=== PATIENT | male | born 1935 | race Caucasian/White ===

== ENCOUNTER 2020-05-29 10:44 | Day surgery (SDC) | payer OTHER ==
[2020-05-29] MEDS ORDERED: Phenylephrine HCl 10 MG/ML 1 ML VIAL ONE (10:58)
[2020-05-29] MEDS ORDERED: Ringers Lactate 1,000 ML IV ONE (10:58)
[2020-05-29] MEDS ORDERED: GLYCOPYRROLATE 0.2 MG/ML SYR ONE ×2 (11:08→12:31)
[2020-05-29] MEDS ORDERED: LIDOCAINE VISCOUS 2% SOLN 15 ML UDC ONE (12:28)
[2020-05-29] MEDS ORDERED: LIDOCAINE 1% MPF 30 ML VIAL ONE (12:28)
[2020-05-29] MEDS ORDERED: propofoL 200 MG/20 ML VIAL IV ONE ×2 (12:31→13:21)
[2020-05-29] MEDS ORDERED: LIDOCAINE 2% MPF 5 ML VIAL ONE (12:31)
--- NOTE | 2020-05-29 13:27 | RAD REPORT ---
EXAM DESCRIPTION: RAD - FLUORO-GUIDE FOR BRONCH UPT1HR - 05/29/2020 1:20 pm CLINICAL HISTORY: BRONCHOSCOPY COMPARISON: No comparisons FINDINGS: Fluoroscopy time 1.5 minutes.
--- OUTSIDE RECORDS SUMMARY | 2020-05-29 13:27 | XMS REPORT | Clinical Summary ---
:1935 Author Organization [facility] Address [address] [place] [address] Care Team Providers Name Role Phone Cali Barriga MD Primary Care Provider Allergies No Known Allergies Medications Medication Sig Dispensed Refills Start Date End Date Status fenofibrate (LOFIBRA) Take 134 mg by 0 Active 160 MG tablet mouth daily. lisinopril Take 10 mg by 0 Activ e (PRINIVIL,ZESTRIL) 10 mouth daily. mg tablet rosuvastatin (CRESTOR) Take 20 mg by 0 Active 20 MG tablet mouth daily. tamsulosin (FLOMAX) 0.4 Take 0.4 mg by 0 Active mg capsule mouth daily. metoprolol tartrate Take 25 mg by 0 Active (LOPRESSOR) 25 mg mouth 2 (two) tablet times a day. finasteride (PROSCAR) 5 Take 5 mg by 0 Active mg tablet mouth daily. aspirin (ECOTRIN) 81 MG Take 81 mg by 0 Active enteric coated tablet mouth daily. multivit-min/FA/lycopen Take 1 capsule by 0 Active /lutein (CENTRUM SILVER mouth daily. 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 Last Filed Vital Signs Not on file Plan of Treatment Health Maintenance Due Date Last Done Comments SHINGLES VACCINES (#1) 1984 65+ PNEUMOCOCCAL VACCINE (1 of 2 - PCV13) 1999 INFLUENZA VACCINE 06/30/2020 11/19/2013 Implants Implanted Type Area Turf Manager Device Shelf Model / Identifier Expiration Serial / Date Lot Lead Tendril Mri 58cm - [id number] - [id number] Cardiac Pacing N/A: N /A 02/28/2020 [id number] / Implanted: Qty: 1 on 10/03/2018 by Kendall Fields MD at [facility] L sylvie or [id number] / Electrodes or [id number] Accessories Lead Tendril Mri 52cm - [id number] - [id number] Cardiac Pacing N/A: N /A 02/28/2020 [id number] / Implanted: Qty: 1 on 10/03/2018 by Kendall Fields MD at [facility] L sylvie or [id number] / Electrodes or [id number] Accessories Assurity Mri Dual - [id number] - [id number] PACEMAKERS N/A: N/A 02/28/2020 [id number] / Implanted: Qty: 1 on 10/03/2018 by Kendall Fields MD at [facility] [id number] / [id number] Results Not on fileafter 05/29/2019 Advance Directives For more information, please contact: [phone] Type Date Recorded 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
--- OUTSIDE RECORDS SUMMARY | 2020-05-29 13:27 | XMS REPORT | Continuity of Care Document ---
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 Social History Social Habit Start Date Stop Date Quantity Comments Source Sex Assigned At Rud[facility] Taylorist Smoking Status Start Date Stop Date Source Former Smoker [facility] Medications Ordered Filled Start Stop Current Ordering Indication Dosage Frequency Signature Comments Components Source Medication Medication Date Date Medication? Clinician (SIG) Name Name fenofibrate 2017-11 Yes 134mg QD Take 134 [place] (LOFIBRA) 1-05 mg by Methodi 160 MG 14:05: mouth st tablet 27 daily. lisinopril 2017-11 Yes 10mg QD Take 10 mg [place] (PRINIVIL,Z 1-05 by mouth Meth nikki ESTRIL) 10 14:05: daily. st mg tablet 27 rosuvastati 2017-11 Yes 20mg QD Take 20 mg Taylor n (CRESTOR) 1-05 by mouth Meth nikki 20 MG 14:05: daily. st tablet 27 tamsulosin 2017-11 Yes .4mg QD Take 0.4 Rudolph ston (FLOMAX) 1-05 mg by Methodi 0.4 mg 14:05: mouth st capsule 27 daily. metoprolol 2017-11 Yes 25mg Q.5D Take 25 mg [place] tartrate 1-05 by mouth 2 Metho di (LOPRESSOR) 14:05: (two) st 25 mg 27 times a tablet day. finasteride 2017-11 Yes 5mg QD Take 5 mg [place] (PROSCAR) 5 -05 by mouth Meth nikki mg tablet 14:05: daily. st 27 aspirin 2017-11 Yes 81mg QD Take 81 mg [place] (ECOTRIN) 05 by mouth Method i 81 MG 14:05: daily. st enteric 27 coated tablet multivit-mi 2017-11 Yes 1{capsu Take 1 [place] n/FA/lycope 1-05 le} capsule by Tn thodi n/lutein 14:05: mouth st (CENTRUM 27 daily. SILVER MEN ORAL) amoxicillin amoxicillin No 1 BID amoxicilli [facility] 875 mg 875 mg n 875 mg da tablet Take tablet Take tablet Medical 1 tablet 1 tablet Take 1 Group twice a day twice a day tablet by oral by oral twice a route with route with day by meals for meals for oral route 10 days. 10 days. with meals for 10 days. Centrum Centrum No Centrum [place] [facility] Silver Silver Silver [facility] Crestor 20 Crestor 20 No Crestor 20 [facility] mg tablet mg tablet mg tablet da [facility] fenofibrate fenofibrate No fenofibrat [facility] micronized micronized e da 134 mg 134 mg micronized Medic al capsule capsule 134 mg Group capsule lisinopril lisinopril No lisinopril [facility] 10 mg 10 mg 10 mg da tablet tablet tablet Medical Group lisinopril lisinopril No lisinopril [facility] 5 mg tablet 5 mg tablet 5 mg d a once daily once daily tablet M edical once daily Group metoprolol metoprolol No metoprolol [facility] tartrate 25 tartrate 25 tartrate da mg tablet mg tablet 25 mg Medi margarito one tab one tab tablet one Roberto up twice daily twice daily tab twice daily metronidazo metronidazo No metronidaz [place] le 0.75 % le 0.75 % ole 0.75 % da topical gel topical gel topical Medical gel Group prednisone prednisone No prednisone [facility] 20 mg 20 mg 20 mg da tablet Take tablet Take tablet Medical one tablet one tablet Take one Group by mouth by mouth tablet by bid for 7 bid for 7 mouth bid day with day with for 7 day meals then meals then with meals once a day once a day then once for 7 days for 7 days a day for with meal with meal 7 days with meal tamsulosin tamsulosin No tamsulosin [facility] 0.4 mg 0.4 mg 0.4 mg da capsule capsule capsule Medica l Take 1 Take 1 Take 1 Group capsule capsule capsule every day every day every day by oral by oral by oral route. route. route. tobramycin tobramycin No tobramycin [facility] 0.3 0.3 0.3 da %-dexametha %-dexametha %-dexameth Medical sone 0.1 % sone 0.1 % asone 0.1 Group eye eye % eye drops,suspe drops,suspe drops,susp nsion nsion ension Tricor Tricor No Tricor [facility] Tricor 145 Tricor 145 No Tricor 145 [facility] mg tablet mg tablet mg tablet da once a day once a day once a day Medical Group Vital Signs Vital Name Observation Time Observation Value Comments Source BP Diastolic 2020-01-26 00:00:00 82 mm[Hg] [facility] BP Systolic 2020-01-26 00:00:00 120 mm[Hg] [facility] Body Weight 2020-01-26 00:00:00 202.5 [lb_av] [facility] Procedures Procedure Date / Time Performed Performing Clinician [facility] e TYMPANOMETRY 2020-01-26 00:00:00 [facility] Cataract [facility] Cholecystectomy [facility] Plan of Care Planned Activity Planned Date Details Comments Source Future Scheduled Test 2020-06-30 INFLUENZA VACCINE H reyes Taylorist 00:00:00 [code = INFLUENZA VACCINE] Future Scheduled Test 1999 65+ PNEUMOCOCCAL Ho [facility] Jain 00:00:00 VACCINE (1 of 2 - PCV13) [code = 65+ PNEUMOCOCCAL VACCINE (1 of 2 - PCV13)] Future Scheduled Test 1984 SHINGLES VACCINES H reyes Jain 00:00:00 (#1) [code = SHINGLES VACCINES (#1)] Instructions [facility] Encounters Start End Encounter Admission Attending Care Care Encounter Source Date/Time Date/Time Type Type Clinicians Facility Department ID 2020-01-26 2020-01-26 Nicolle FARFAN [place] - [id number] [facility] 00:00:00 00:00:00 MD Al: [address] [facility] [place], [place] - [address], [place], [place] [address] , Ph. 2017-12-03 2017-12-03 Outpatient Justine BURGESS, [facility] [id number] [address] 22:33:00 22:33:00 [facility] Results Test Description Test Time Test Comments Results Result Comments Source CBC with Differential 2017-12-03 23:32:00 Test Item Value Reference Range Interpretation Comme nts WBC (test code = WBC) 6.3 K/cumm 4.4-10.5 N RBC (test code = RBC) 3.37 M/cumm 4.10-5.70 L Hemoglobin (test code = HGB) 10.7 gm/dL 13.4-17.4 L Hematocrit (test code = HCT) 32.2 % 38.7-52.0 L MCV (test code = MCV) 95.3 fL 80-100 N MCH (test code = MCH) 31.6 pg 27.0-32.5 N MCHC (test code = MCHC) 33.2 g/dL 32.0-37.5 N RDW (test code = RDW) 12.7 % 11.5-14.5 N Platelet Count (test code = PLTCT) 259 K/cumm 140-440 N MPV (test code = MPV) 9.8 fL Diff Method (test code = DIFFM) Auto Neutrophil (test code = NEUT) 63.4 % 36-70 N Lymphocyte (test code = LYMPH) 26.3 % 12-44 N Monocyte (test code = MONO) 6.9 % 0-11 N Eosinophil (test code = EOS) 2.7 % 0-7 N Basophil (test code = BASO) 0.7 % 0-2 N Neutro Abs (test code = ANEUT) 4.0 K/cumm 1.6-7.4 N Lymph Abs (test code = ALYMPH) 1.6 K/cumm 0.5-4.6 N [place] Abs (test code = AMONO) 0.4 K/cumm 0.0-1.2 N Eos Abs (test code = AEOS) 0.17 K/cumm 0.00-0.74 N Baso Abs (test code = ABASO) 0.0 K/cumm 0.00-0.21 N PSA, Medicare [id number] 23:03:00 Test Item Value Reference Range Interpretation Comments PSA (test code = 5.34 ng/mL 0.000-6.220 N (NOTE)Prost ate Specific PSA) Antigen Test Information:The Total PSA method is appro bernabe for use as an aid in th e detection ofprostate canc er when used in conjunc tion with a digital rectal exam inmen age 50 and olde r. The total PSA metho d is also indicated for t heserial measurement of PSA to aid in the prognosi s and management ofpr ostate cancer patients .Elevated PSA concentrati ons can only suggest th e presence of prostatecanc er until biopsy is perfo rmed. PSA concentration c an also be elevatedin tatiana gn prostatic hyper plasia or inflammatory co nditions of theprostate. PS A is generally not e levated in healthy men or men withnon-prostat ic carcinoma. Comprehensive Metabolic [id number] 23:01:00 Test Item Value Reference Range Interpretation Comments Sodium (test code = 139 mmol/L 135-145 N NA) Potassium (test 4.1 mmol/L 3.5-5.1 N code = K) Chloride (test code 101 mmol/L 98-105 N = CL) Carbon Dioxide 30 mmol/L 22-29 H (test code = CO2) Glucose (test code 122 mg/dL 70-115 H = GLU) Blood Urea Nitrogen 19 mg/dL 8-23 N (test code = BUN) Creatinine (test 1.1 mg/dL 0.7-1.2 N code = CREAT) Calcium (test code 9.6 mg/dL 8.3-10.5 N = CA) Prot Total (test 6.8 g/dL 6.4-8.3 N code = TP) Albumin (test code 3.9 g/dL 3.5-5.2 N = ALB) A/G Ratio (test 1.3 Ratio code = AGRATIO) Globulin (test code 2.9 2.9-3.1 N = GLOB) Bili Total (test 0.3 mg/dL 0.1-0.9 N code = TBIL) Alk Phos (test code 43 U/L 40-129 N = APHOS) AST (test code = 37 U/L 1-40 N AST) ALT (test code = 27 U/L 1-41 N ALT) BUN/Creatinine 17.3 Ratio (test code = BCRATIO) Anion Gap (test 8 mmol/L 7-16 N code = AGAP) Estimated GFR (test >60 eGFR (es timated code = GFR) mL/min/1.73m2 Glomerular Dallin tration Rate) is an est imated value,calculate d from the patient's s angelica creatinine usin g the MDRD equation.I t is NOT the patient 's actual GFR. The eGFR provides a more clinicallyusefu l measure of kidn ey disease than se rum creatinine alone.This calculation lata es sex and race into account, if the informationis provided. If th e race is not provided , and the patient isAfrican-Ameri can, multiply by 1.2 12. If sex is not prov ided, and thepatient is female, multipl y by 0.742. Results for patients <18 ye ars ofage have not been validated by th e MDRD study and shoul d be interpretedwith caution.eGFR Re sult Interpretation: eGFR > or = 60 is in t he Normal RangeeGF R < 60 may mean kidney diseaseeGFR < 1 5 may mean kidney failureRange s recommended by the National Kidney Foundation,http ://nkd ep.nih.gov Lipid [id number] 23:01:00 Test Item Value Reference Range Interpretation Comments Cholesterol (test 123 mg/dL 0-200 N code = CHOL) Triglycerides (test 168 mg/dL 9-200 N code = TRIG) HDL (test code = 27 mg/dL 40-60 L HDL) Chol/HDL (test code 4.6 Ratio 0.0-5.0 N = CHOLPHDL) LDL, Calculated 62 0-130 N (NOTE)RISK O F HEART (test code = LDLC) DISEASEPu blished by [place] Heart AssociationAnal yte Optim al Boderline Increased RiskC HOL <200 200-239 >240TRI G <150 150-199 >200HDL Male: >60 <40HDL Female: >60 <50 LDL < 100 130-15 9 >160 LDL NEAR OPTIMAL IS 100- 129 VLDL (test code = 34 mg/dL 5-40 N VLDL) LDL/HDL (test code = 2 LDLPHDL) [id number] 22:57:00 Test Item Value Reference Range Interpretation Comments NT ProBnp (test code = PBNP) 260 pg/mL 0-449 N
--- NOTE | 2020-05-29 14:33 | RAD REPORT ---
EXAM DESCRIPTION: RAD - Chest Single View - 05/29/2020 2:26 pm CLINICAL HISTORY: S/P BRONCHOSCOPY;R/O PNEUMOTHORAX Chest pain. COMPARISON: No comparisons FINDINGS: Portable technique limits examination quality. The lungs are underinflated which causes vascular crowding. No pneumothorax. The heart is mildly prom inent seen with dual lead pacer device. IMPRESSION: No measurable pneumothorax.
[2020-05-29 14:41] VITALS: O2SAT 98
[2020-05-29 15:31] VITALS: BP 137/66; TEMP 97
--- NOTE | 2020-05-30 08:21 | P.OP ---
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
== END 2020-05-29 15:27 | disposition home or self-care (01) ==
LOC: OR 10:44
PROVIDERS: ATTEND Internal Medicine Sleep Medicine
PROC: 0B9C8ZX Drainage of Right Upper Lung Lobe, Via Natural or Artificial Opening Endoscopic, Diagnostic (ICD-10-PCS; 2020-05-29)
PROC: 0BDC8ZX Extraction of Right Upper Lung Lobe, Via Natural or Artificial Opening Endoscopic, Diagnostic (ICD-10-PCS; 2020-05-29)
PROC: 0BB48ZX Excision of Right Upper Lobe Bronchus, Via Natural or Artificial Opening Endoscopic, Diagnostic (ICD-10-PCS; principal; 2020-05-29 12:00)
DX: C34.11 Malignant neoplasm of upper lobe, right bronchus or lung (principal); J44.9 Chronic obstructive pulmonary disease, unspecified; Z87.891 Personal history of nicotine dependence; E78.5 Hyperlipidemia, unspecified; N40.0 Benign prostatic hyperplasia without lower urinary tract symptoms; Z79.82 Long term (current) use of aspirin; Z79.899 Other long term (current) drug therapy; Z95.0 Presence of cardiac pacemaker; Z11.59 Encounter for screening for other viral diseases
CPT/HCPCS: 87070; 88108; 88305 ×2; 87015; 87206; 87116; 71045; 76000; 31625; 31624; 31623; U0002; J2704; J2370; J7120

== ENCOUNTER 2020-07-30 13:58 | Inpatient (IN) | payer OTHER ==
--- OUTSIDE RECORDS SUMMARY | 2020-07-30 14:01 | XMS REPORT | Clinical Summary ---
:1935 Author Organization [facility] Address [address] [place] [address] Care Team Providers Name Role Phone Cali [...] of 2 - PCV13) 1999 INFLUENZA VACCINE 08/30/2020 11/19/2013 Implants Implanted Type Area Supervisor Laboratory Animal Facility Device Shelf Model / Identifier Expiration Serial / Date Lot Lead Tendril Mri 58cm - [id number] - [id number] Cardiac Pacing N/A: N /A 02/28/2020 [id number] / Implanted: Qty: 1 on 10/03/2018 by Kendall Fields MD at [facility] L sylvie or [id number] / Electrodes or [id number] Accessories Lead Tendril Mri 52cm - [id number] - [id number] Cardiac Pacing N/A: N /A 02/28/2020 [id number] / Implanted: Qty: 1 on 10/03/2018 by Kendall Fields MD at [facility] L sylvie or [id number] / Electrodes or [id number] Accessories Assurity Mri Dual - [id number] - [id number] PACEMAKERS N/A: N/A 02/28/2020 [id number] / Implanted: Qty: 1 on 10/03/2018 by Kendall Fields MD at [facility] [id number] / [id number] Results Not on fileafter 07/30/2019 Advance Directives For more information, please contact: [phone] Type Date Recorded 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
--- OUTSIDE RECORDS SUMMARY | 2020-07-30 14:02 | XMS REPORT | Continuity of Care Document ---
:[address] 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 Social History Social Habit Start Date Stop Date Quantity Comments Source Sex Assigned At Rudolph Molina Smoking Status Start Date Stop Date Source Former Smoker [facility] Medications Ordered Filled Start Stop Current Ordering Indication Dosage Frequency Signature Comments Components Source Medication Medication Date Date Medication? Clinician (SIG) Name Name fenofibrate 2017-11 Yes 134mg QD Take 134 [place] (LOFIBRA) 1-05 mg by Methodi 160 MG [...] Take 5 mg [place] (PROSCAR) 5 1-05 by mouth Meth nikki mg tablet 14:05: daily. st 27 aspirin 2017-11 Yes 81mg QD Take 81 mg [place] (ECOTRIN) 1-05 by mouth Method i 81 MG 14:05: daily. st enteric 27 coated tablet multivit-mi 2017-11 Yes 1{capsu Take 1 [place] n/FA/lycope 1-05 le} capsule by Me thodi n/lutein 14:05: mouth st (CENTRUM 27 [...] Procedure Date / Time Performed Performing Clinician Sour e TYMPANOMETRY 2020-01-26 00:00:00 [facility] Cat[facility]act [facility] Plan of Care Planned Activity Planned Date Details Comments Source Future Scheduled Test 2020-08-30 INFLUENZA VACCINE H reyes Molina 00:00:00 [code = INFLUENZA VACCINE] Future Scheduled Test 1999 65+ PNEUMOCOCCAL [place] [facility] 00:00:00 VACCINE (1 of 2 - PCV13) [code = 65+ PNEUMOCOCCAL VACCINE (1 of 2 - PCV13)] Future Scheduled Test 1984 SHINGLES VACCINES [facility] 00:00:00 (#1) [code = SHINGLES VACCINES (#1)] Instructions [facility] Encounters Start End Encounter Admission Attending Care Care Encounter Source Date/Time Date/Time Type Type Clinicians Facility Department ID 2020-01-26 2020-01-26 Mattblanquita [facility] [place] - [id number] [facility] 00:00:00 00:00:00 MD Al: [employer] [address] [facility] [place], [place] - [address], [place], [place] [address] , Ph. 2017-12-03 2017-12-03 Outpatient Justine BURGESS [facility] [id number] [address] 22:33:00 22:33:00 [facility] Results Test Description Test Time Test Comments [...] code = ALYMPH) 1.6 K/cumm 0.5-4.6 N Crane Abs (test code = AMONO) 0.4 K/cumm 0.0-1.2 N Eos Abs (test code = AEOS) 0.17 K/cumm 0.00-0.74 N Baso Abs (test code = ABASO) 0.0 K/cumm 0.00-0.21 N PSA, Medicare [id number] 23:03:00 Test Item Value Reference Range Interpretation [...] or men withnon-prostat ic carcinoma. Comprehensive Metabolic [id number] 23:01:00 Test Item Value Reference Range Interpretation [...] the National Kidney Foundation,http ://nkd ep.nih.gov Lipid [id number] 23:01:00 Test Item Value Reference Range Interpretation Comments Cholesterol (test 123 mg/dL 0-200 N code = CHOL) Triglycerides (test 168 mg/dL 9-200 N code = TRIG) HDL (test code = 27 mg/dL 40-60 L HDL) Chol/HDL (test code 4.6 Ratio 0.0-5.0 N = CHOLPHDL) LDL, Calculated 62 0-130 N (NOTE)RISK O F HEART (test code = LDLC) DISEASEPu blished by [place] Heart AssociationAnal yte Optim al Boderline Increased RiskC HOL <200 200-239 >240TRI G <150 150-199 >200HDL Male: >60 <40HDL Female: >60 <50 LDL < 100 130-15 9 >160 LDL NEAR OPTIMAL IS 100- 129 VLDL (test code = 34 mg/dL 5-40 N VLDL) LDL/HDL (test code = 2 LDLPHDL) [id number] 22:57:00 Test Item Value Reference Range Interpretation Comments NT ProBnp (test code = PBNP) 260 pg/mL 0-449 N
[2020-07-30 14:33] LABS: Absolute Lymphocytes (CBC) 0.5 K/uL (0.7-4.9); Basophils % 0.5 % (0-1.3); Hematocrit 32.2 % (39.6-49.0); Lymphocytes % 8.3 % (15.3-44.8); MPV 7.7 fL (7.6-11.3); RBC Red Blood Cell Count 3.31 M/uL (4.33-5.43)
[2020-07-30 14:44] LABS: Arterial Blood Carboxyhemoglob 1.7 % (0-1.5); Blood Gas Oxyhemoglobin 85.9 % (94-97); Blood O2 Saturation 88.2 % (92-98.5)
[2020-07-30 14:46] LABS: Protime INR 1.05
--- NOTE | 2020-07-30 14:47 | RAD REPORT ---
EXAM DESCRIPTION: RAD - Chest Single View - 07/30/2020 2:33 pm CLINICAL HISTORY: DYSPNEA COMPARISON: Portable May 29 TECHNIQUE: AP portable chest image was obtained 07/30/2020 2:33 pm . FINDINGS: Lung volumes are low. Patchy left base opacification is present partially obscuring the le ft hemidiaphragm. Minimal opacification is present in the inferior aspect of the right upper lobe. Ov erall atelectasis changes are evident due to low lung volume. This accentuates baseline chronic inter stitial pattern. Heart and vasculature are normal. No measurable pleural effusion and no pneumothorax. No acute bony abnormality seen. No acute aortic findings suspected. IMPRESSION: Increased opacification at the left base and inferior aspect right upper lobe. Early pneumonia is suspected. The low lung volumes limit assessment.
[2020-07-30 15:00] LABS: C-Reactive Protein 62.8 mg/L (<3.00); Potassium 4.9 mmol/L (3.5-5.1); Troponin (Emerg Dept Use Only) 0.06 ng/mL (0.0-0.045)
[2020-07-30 15:08] LABS: Blood Morphology Comment NOT SEEN (NOT SEEN); Platelet Estimate ADEQ; Toxic Granulation 1+
--- NOTE | 2020-07-30 15:30 | ER ---
Nurse's Notes [facility] Name: Fabrice Christopher Age: 84 yrs Sex: Male : 1935 Arrival Date: 07/30/2020 Time: 14:00 Bed 15 Private MD: Diagnosis: Pneumonia, unspecified organism;Acute and chronic respiratory failure;Chronic obstructive pulmonary disease, unspecified;Hypoxemia Presentation: 07/30 14:10 Chief complaint: Patient states: sent by cancer center for SOB/diff breathing, iw tachypneic at 40-50 breaths per minute, hypoxic at 89%, has hx of lung cancer. was supposed to have his chemo today but was unable to tolerate, has been SOB for 3 days worse today. 14:27 Acuity: CYNDY 1 iw 14:30 Risk Assessment: Do you want to hurt yourself or someone else? Patient reports no iw desire to harm self or others. 14:30 Method Of Arrival: Wheelchair iw 14:30 Coronavirus screen: Client denies travel out of the [place] in the last 14 days. shaking jr10 with chills, shortness of breath, Client presents with at least one sign or symptom that may indicate coronavirus-19. Standard/surgical mask placed on the client. Provider contacted for isolation considerations. Ebola Screen: No symptoms or risks identified at this time. Initial Sepsis Screen: Does the patient meet any 2 criteria? RR > 20 per min. HR > 90 bpm. Yes Does the patient have a suspected source of infection? No. Patient's initial sepsis screen is negative. Onset of symptoms was July 30, 2020. Historical: - Allergies: 15:00 No Known Allergies; jr10 - Home Meds: 15:01 levalbuterol tartrate inhalation inhalation 2 puffs [Active]; jr10 - Immunization history:: Adult Immunizations up to date. - Family history:: not pertinent. - Social history:: Smoking status: unknown. - Hospitalizations: : No recent hospitalization is reported. Screenin:30 Abuse screen: Denies threats or abuse. Denies injuries from another. Nutritional jr10 screening: No deficits noted. Tuberculosis screening: No symptoms or risk factors identified. Fall Risk IV access (20 points). Ambulatory Aid- Crutches/Cane/Walker (15 pts). Gait- Weak (10 pts.). Assessment: 14:30 General: Appears distressed, Behavior is restless. Pain: Denies pain. Neuro: No jr10 deficits noted. Level of Consciousness is awake, alert, obeys commands, Oriented to person, place, time, situation, Appropriate for age Speech is normal. Cardiovascular: No deficits noted. Denies chest pain, Rhythm is Respiratory: Reports shortness of breath at rest on exertion cough that is productive, reports hemoptysis x1 week Airway is patent Respiratory effort is even, labored, Respiratory pattern is symmetrical, tachypnea Breath sounds are coarse bilaterally. the patient has moderate shortness of breath. GI: No deficits noted. No signs and/or symptoms were reported involving the gastrointestinal system. : No deficits noted. No signs and/or symptoms were reported regarding the genitourinary system. EENT: No deficits noted. No signs and/or symptoms were reported regarding the EENT system. Derm: No deficits noted. No signs and/or symptoms reported regarding the dermatologic system. Musculoskeletal: Reports weakness in generalized. 14:36 Reassessment: respiratory at bedside for ABG. jr10 Vital Signs: 14:45 BP 135 / 58; Pulse 103; Resp 38; Temp 100.4(TE); Pulse Ox 96% on BiPAP; Pain 0/10; jr10 15:00 BP 107 / 65; Pulse 98; Resp 25; Pulse Ox 97% on BiPAP; jr10 16:00 BP 126 / 55; Pulse 102; Resp 30; Pulse Ox 97% on BiPAP; jr10 17:00 BP 121 / 68; Pulse 102; Resp 25; Temp 99.6(TE); Pulse Ox 97% on BiPAP; jr10 ED Course: 14:00 Patient arrived in ED. ag5 14:03 Arnodl Raymond MD is Attending Physician. rn 14:16 Missed attempt(s): 22 gauge in left hand. Bleeding controlled, band aid applied, tw2 catheter tip intact. Inserted saline lock: 20 gauge in right antecubital area, using aseptic technique. ,using aseptic technique. per TWYLA Kendrick Blood collected. 14:30 Triage completed. iw 14:30 Patient has correct armband on for positive identification. Placed in gown. Bed in low jr10 position. Call light in reach. Side rails up X2. machine iii coremaker on. Pulse ox on. NIBP on. 14:32 Lor Lopez RN is Primary Nurse. jr10 14:33 XRAY CXR (1 view) In Process Unspecified. EDMS 15:02 Notified ED physician of a critical lab result(s). DD [id number]. em 15:28 Andrew Rios DO is Hospitalizing Provider. rn 17:28 No provider procedures requiring assistance completed. jr10 17:30 Patient admitted, IV remains in place. intact, No redness/swelling at site. jr10 Administered Medications: 15:12 Drug: Decadron - Dexamethasone 10 mg Route: IVP; Site: right antecubital; jr10 16:51 Follow up: Response: No adverse reaction jr10 15:15 Drug: LevaQUIN 750 mg Volume: 150 ml; Route: IVPB; Infused Over: 90 mins; Site: right jr10 antecubital; 17:16 Follow up: Response: No adverse reaction; IV Status: Completed infusion jr10 16:14 Drug: Xopenex (3) 1.25 mg Route: Inhalation; jr10 16:51 Follow up: Response: No adverse reaction jr10 16:20 Drug: Ativan 0.25 mg Route: IVP; Site: right antecubital; jr10 16:51 Follow up: Response: No adverse reaction; Anxiety decreased jr10 Outcome: 15:29 Decision to Hospitalize by Provider. rn 17:28 Admitted to Med/surg accompanied by tech, via stretcher, room 211, with oxygen, with jr10 chart, Report called to TWYLA Talbot 17:28 Condition: improved 17:28 Instructed on the need for admit. 17:57 Patient left the ED. jr10 Signatures: Dispatcher [employer] EDNJ Herbert Denis, Mireille Duff RN, RN Arnold Vidal MD MD rn Wise, Tara, RN RN [facility] Lor Lopez, TWYLA RN jr10
--- NOTE | 2020-07-30 15:30 | EDPHYS ---
Physician Documentation [facility] Name: Fabrice Christopher Age: 84 yrs Sex: Male : 1935 Arrival Date: 07/30/2020 Time: 14:00 Bed 15 Private MD: ED Physician Arnold Raymond HPI: 07/30 14:44 This 84 yrs old Male presents to ER via Wheelchair with complaints of rn Shortness Of Breath. 14:44 The patient has shortness of breath with light activity. Onset: The symptoms/episode rn began/occurred 3 day(s) ago. Duration: The symptoms are continuous. The patient's shortness of breath is aggravated by exertion, light activity. Severity of symptoms: At their worst the symptoms were moderate in the emergency department the symptoms are unchanged. The patient has experienced similar episodes in the past. The patient has been recently seen by a physician:. Sent from cancer center for dyspnea, reports weeks of dyspnea but worse over last 3 days, + white sputum, no fever, + hx of COPD and lung cancer. + mild hemoptysis, notified cancer doctor, prescribed steroids and zithromax Thursday. . Historical: - Allergies: 15:00 No Known Allergies; jr10 - Home Meds: 15:01 levalbuterol tartrate inhalation inhalation 2 puffs [Active]; jr10 - Immunization history:: Adult Immunizations up to date. - Family history:: not pertinent. - Social history:: Smoking status: unknown. - Hospitalizations: : No recent hospitalization is reported. ROS: 14:44 Constitutional: Negative for fever, chills, and weight loss, Eyes: Negative for injury, rn pain, redness, and discharge, Cardiovascular: Negative for chest pain, palpitations, and edema, Respiratory: + sob and cough Abdomen/GI: Negative for abdominal pain, nausea, vomiting, diarrhea, and constipation, MS/Extremity: Negative for injury and deformity, Skin: Negative for injury, rash, and discoloration, Neuro: + generalized weakness Exam: 14:44 Constitutional: This is a well developed, well nourished patient who is awake, alert, rn + moderate tachypnea, appears anxious. Head/Face: Normocephalic, atraumatic. ENT: no stridor Cardiovascular: Tachycardic. No pulse deficits. Respiratory: + moderate tachypnea, no retractions, + coarse bilateral breath sounds Abdomen/GI: soft, non-tender MS/ Extremity: Pulses equal, no cyanosis. + non-pitting edema bilateral lower ext. Equal circumference. Neuro: Awake and alert, GCS 15 Vital Signs: 14:45 BP 135 / 58; Pulse 103; Resp 38; Temp 100.4(TE); Pulse Ox 96% on BiPAP; Pain 0/10; jr10 15:00 BP 107 / 65; Pulse 98; Resp 25; Pulse Ox 97% on BiPAP; jr10 16:00 BP 126 / 55; Pulse 102; Resp 30; Pulse Ox 97% on BiPAP; jr10 17:00 BP 121 / 68; Pulse 102; Resp 25; Temp 99.6(TE); Pulse Ox 97% on BiPAP; jr10 MDM: 14:03 Patient medically screened. rn 15:03 Differential diagnosis: Chronic Obstructive Pulmonary Disease pneumonia, Pneumothorax rn pulmonary edema, Pulmonary Embolism Sepsis. Data reviewed: vital signs, nurses notes, lab test result(s), EKG, radiologic studies, plain films, and as a result, I will admit patient. Counseling: I had a detailed discussion with the patient and/or guardian regarding: the historical points, exam findings, and any diagnostic results supporting the discharge/admit diagnosis, lab results, radiology results, the need for further work-up and treatment in the hospital. Response to treatment: the patient's symptoms have mildly improved after treatment, and as a result, I will admit patient. Admission orders: after a detailed discussion of the patient's condition and case, the admit orders are written by me. ED course: Pt with pneumonia, COVID sent levaquin ordered, improved on BIPAP, will admit for pneumonia and sepsis to Dr. Rios. . 07/30 14:10 Order name: ABG; Complete Time: 15: rn 07/30 14:10 Order name: Blood Culture Adult (2) rn 07/30 14:10 Order name: BMP; Complete Time: 15: rn 07/30 14:10 Order name: CBC with Diff; Complete Time: 15: rn 07/30 14:10 Order name: D-Dimer; Complete Time: 15: rn 07/30 14:10 Order name: NT PRO-BNP; Complete Time: 15: rn 07/30 14:10 Order name: PT-INR; Complete Time: 15:02 rn 07/30 14:10 Order name: Ptt, Activated; Complete Time: 15:02 rn 07/30 14:10 Order name: Troponin (emerg Dept Use Only); Complete Time: 15:02 rn 07/30 14:10 Order name: Procalcitonin; Complete Time: 15:26 rn 07/30 14:10 Order name: Lactate; Complete Time: 15:02 rn 07/30 14:10 Order name: CRP; Complete Time: 15:02 rn 07/30 14:42 Order name: Manual Differential; Complete Time: 15:26 EDMS 07/30 14:10 Order name: BIPAP rn 07/30 14:10 Order name: Call RT; Complete Time: 16:51 rn 07/30 14:10 Order name: XRAY CXR (1 view); Complete Time: 15:02 rn 07/30 14:10 Order name: EKG; Complete Time: 14:11 rn 07/30 14:10 Order name: Cardiac monitoring; Complete Time: 14:44 rn 07/30 14:10 Order name: EKG - Nurse/Tech; Complete Time: 14:44 rn 07/30 14:10 Order name: IV Saline Lock; Complete Time: 14:44 rn 07/30 14:10 Order name: Labs collected and sent; Complete Time: 14:45 rn 07/30 14:10 Order name: O2 Per Protocol; Complete Time: 14:45 rn 07/30 14:10 Order name: O2 Sat Monitoring; Complete Time: 14:45 rn 07/30 14:49 Order name: EKG Electrocardiogram; Complete Time: 16:51 EDMS 07/30 16:56 Order name: SARS-COV-2 RT PCR; Complete Time: 17:04 EDMS Administered Medications: 15:12 Drug: Decadron - Dexamethasone 10 mg Route: IVP; Site: right antecubital; jr10 16:51 Follow up: Response: No adverse reaction jr10 15:15 Drug: LevaQUIN 750 mg Volume: 150 ml; Route: IVPB; Infused Over: 90 mins; Site: right jr10 antecubital; 17:16 Follow up: Response: No adverse reaction; IV Status: Completed infusion jr10 16:14 Drug: Xopenex (3) 1.25 mg Route: Inhalation; jr10 16:51 Follow up: Response: No adverse reaction jr10 16:20 Drug: Ativan 0.25 mg Route: IVP; Site: right antecubital; jr10 16:51 Follow up: Response: No adverse reaction; Anxiety decreased jr10 Disposition: 15:34 Critical Care:. rn Disposition: 07/30/20 15:29 Hospitalization ordered by Andrew Rios for Inpatient Admission. Preliminary diagnosis are Pneumonia, unspecified organism, Acute and chronic respiratory failure, Chronic obstructive pulmonary disease, unspecified, Hypoxemia. - Bed requested for Telemetry/MedSurg (Inpatient). - Status is Inpatient Admission. jr10 - Condition is Fair. - Problem is new. - Symptoms have improved. Critical care time excluding procedures: :34 Critical care time: Bedside Care: 25 minutes, Consultation: 5 minutes. Total time: 30 rn minutes Signatures: Dispatcher [employer] EDMA Julienne Hicks Roman, MD MD rn Aguilar, Jose, RN RN ja1 Lor Lopez RN RN jr10 Corrections: (The following items were deleted from the chart) 15:34 15:29 Hospitalization Ordered by Andrew Rios DO for Inpatient Admission. Preliminary rn diagnosis is Pneumonia, unspecified organism. Bed requested for Telemetry/MedSurg (Inpatient). Status is Inpatient Admission. Condition is Fair. Problem is new. Symptoms have improved. rn 15:34 15:34 07/30/2020 15:29 Hospitalization Ordered by Andrew Rios DO for Inpatient trademark attorney. Preliminary diagnosis is Pneumonia, unspecified organism. Bed requested for Intensive Care Unit. Status is Inpatient Admission. Condition is Fair. Problem is new. Symptoms have improved. rn 15:55 14:11 CORONAVIRUS+MR.LAB.BRZ ordered. [facility] EDMA 17:01 15:34 07/30/2020 15:29 Hospitalization Ordered by Andrew Rios DO for Inpatient bd Admission. Preliminary diagnosis is Pneumonia, unspecified organism; Acute and chronic respiratory failure; Chronic obstructive pulmonary disease, unspecified; Hypoxemia. Bed requested for Intensive Care Unit. Status is Inpatient Admission. Condition is Fair. Problem is new. Symptoms have improved. rn 17:06 17:01 07/30/2020 15:29 Hospitalization Ordered by Andrew Rios DO for Inpatient ja1 Admission. Preliminary diagnosis is Pneumonia, unspecified organism; Acute and chronic respiratory failure; Chronic obstructive pulmonary disease, unspecified; Hypoxemia. Bed requested for Telemetry/MedSurg (Inpatient). Status is Inpatient Admission. Condition is Fair. Problem is new. Symptoms have improved. bd 17:57 17:06 07/30/2020 15:29 Hospitalization Ordered by Andrew Rios DO for Inpatient jr10 Admission. Preliminary diagnosis is Pneumonia, unspecified organism; Acute and chronic respiratory failure; Chronic obstructive pulmonary disease, unspecified; Hypoxemia. Bed requested for Telemetry/MedSurg (Inpatient). Status is Inpatient Admission. Condition is Fair. Problem is new. Symptoms have improved. ja1
[2020-07-30] MEDS ORDERED: LEVALBUTEROL 1.25 MG/3 ML NEB ONE (15:33)
[2020-07-30] MEDS ORDERED: Levofloxacin 750mg IV 750 MG/150 ML BAG IV ONE (15:33)
[2020-07-30] MEDS ORDERED: dexAMETHasone 10 MG/ML VIAL ONE (15:33)
--- NOTE | 2020-07-30 16:20 | P.HP ---
Certification for Inpatient Patient admitted to: Inpatient With expected LOS: >2 Midnights Patient will require the following post-hospital care: None Practitioner: I am a practitioner with admitting privileges, knowledge of patient current condition, hospital course, and medical plan of care. Services: Services provided to patient in accordance with Admission requirements found in Title 42 Section 412.3 of the Code of Federal Regulations Patient History Date of Service: 07/30/20 Primary Care Provider: Dr. Arreguin([place]); Oncology-Dr. Henao; Pulmonary-Dr. Reed Reason for admission: Dyspnea History of Present Illness: 84-year-old male with history of pacemaker, hypertension, COPD, hyperlipidemia and recent non-small cell lung cancer. Patient has been treated over the past 5 weeks with chemotherapy for non-small lung cancer. Patient has a history of COPD that is managed by Pulmonary. Patient was to get his 6th treatment over the past 5 weeks today. Patient reported increasing shortness of breath at the cancer center. Due to his shortness of breath the patient was sent to the ER for further evaluation. Patient reported fever, cough, and shortness of breath over the last 3 day. Patient was given Medrol Dosepak and Zithromax on Thursday. No exposure to COVID noted. In the ER patient was evaluated. Patient was severely hypoxic with O2 sats in the 80s. Patient was slightly tachypneic and tachycardic. Patient required BiPAP upon initial evaluation. Patient currently stable at this time. White count 5.5, hemoglobin 10.6. Sodium 136, potassium 4.9, BUN of 30, creatinine 1.3 with a GFR 49. Pro calcitonin negative. Lactic acid 3.7. Troponin 0.06. Chest x-ray shows left base pneumonia with right upper lobe pneumonia. Blood gases showed a pH is 7.46 with pCO2 29 and a P O2 of 56. Patient admitted for further evaluation and treatment. When I saw the patient ER, patient appeared stable. Patient on BiPAP. Son at bedside. Patient uses inhaler at home. Allergies No Known Allergies Allergy (Verified 05/24/20 13:29) Home medications list reviewed: Yes Home Medications: Albuterol Neb [Proventil 0.083% Neb Soln] 2.5 mg IH PRN PRN 05/24/20 Aspirin Chewable [Aspirin Chewable*] 81 mg PO DAILY 05/24/20 Cyanocobalamin (Vitamin B-12) [Vitamin B12] 2,500 mcg PO DAILY 05/24/20 Fenofibrate,Micronized [Fenofibrate] 1 tab PO DAILY 05/24/20 Fluticasone/Umeclidin/Vilanter [Trelegy Ellipta 100-62.5-25] 1 each IH DAILY 05/24/20 Lactobacillus Acidophilus [Probiotic] 1 each PO DAILY 05/24/20 Lisinopril [Zestril] 10 mg PO DAILY 05/24/20 Metoprolol Tartrate [Lopressor] 25 mg PO BID 05/24/20 Montelukast Sodium 10 mg PO DAILY 05/24/20 Multivit-Min/FA/Lycopen/Lutein [Centrum Silver Men Tablet] 1 each PO DAILY 05/24/20 Psyllium Husk [Metamucil] 0.52 gm PO BID 05/24/20 Rosuvastatin [Crestor] 20 mg PO DAILY 05/24/20 - Past Medical/Surgical History Diabetic: No -: Hypertension -: Hyperlipidemia -: Pacemaker -: COPD -: Non-small cell lung cancer -: Pacemaker -: Cholecystectomy Psychosocial/ Personal History: 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 - Family History Family History: Reviewed- Non-Contributory - Social History Smoking Status: Former smoker Alcohol use: No CD- Drugs: No Caffeine use: No Place of Residence: Home Review of Systems General: Fever, As per HPI Eyes: Unremarkable ENT: Unremarkable Respiratory: Cough, Shortness of Breath, SOB with Excertion, As per HPI Cardiovascular: As per HPI Gastrointestinal: Unremarkable Genitourinary: Unremarkable Musculoskeletal: Unremarkable Integumentary: Unremarkable Neurological: Unremarkable Lymphatics: Unremarkable Physical Examination - Physical Exam General: Alert, In no apparent distress, Oriented x3, Cooperative HEENT: Atraumatic, Other (Dry mucous membranes) Neck: Supple Respiratory: Other (Patient on BiPAP at this time. Patient stable.) Cardiovascular: Normal pulses, Regular rate/rhythm Gastrointestinal: Normal bowel sounds, Soft and benign, Non-distended, No tenderness, No masses, No rebound, No guarding Musculoskeletal: No erythema, No tenderness, No warmth Integumentary: No tenderness/swelling, No erythema, No warmth, No cyanosis Neurological: Normal speech, Normal strength at 5/5 x4 extr, Normal tone, Normal affect - Studies Laboratory Data (last 24 hrs) 07/30/20 14:10: PT 12.4, INR 1.05, APTT 27.3 07/30/20 14:10: WBC 5.5, Hgb 10.6 L, Hct 32.2 L, Plt Count 316 07/30/20 14:10: Sodium 136, Potassium 4.9, BUN 30 H, Creatinine 1.38 H, Glucose 133 H Assessment and Plan - Plan Impression: Dyspnea secondary to acute respiratory failure with hypoxia this related to COPD exacerbation and bilateral pneumonia Renal insufficiency likely dehydration Non small lung cancer on chemotherapy Hypertension Hyperlipidemia History of pacemaker Anemia likely of chronic disease Plan: Dyspnea secondary to acute respiratory failure with hypoxia this related to COPD exacerbation and bilateral pneumonia: Patient will be admitted for further evaluation and treatment. Will continue BiPAP. Patient much improved. Will continue with IV Solu-Medrol, IV Levaquin. Patient does not appear septic at this time. Will monitor closely. Will provide IV fluid hydration. Will start DVT prophylaxis. Will need to obtain CT scan to evaluate for pulmonary embolism due to elevated D-dimer. Will consult pulmonology for further evaluation and treatment. Respiratory consulted to help wean off BiPAP. Maintain sats above 93%. Will continue with COPD medication. Will discuss with Oncology. Anticipate improvement over the next 48-72 hr. Renal insufficiency likely dehydration: Will provide medication. Hold l isinopril at this time. May need to restart once renal function improved. Non small lung cancer on chemotherapy: Patient currently on chemotherapy. He was to received his 6th treatment this week. Hypertension: Hold lisinopril at this time. Blood pressure stable off medication. Hyperlipidemia: Continue medication History of pacemaker: Stable. Will monitor cardiac enzymes and telemetry. Will order echocardiogram to further evaluate. Anemia likely of chronic disease: Monitor closely. Discharge Plan: Home Plan to discharge in: 72 Hours - Advance Directives Does patient have a Living Will: No Does patient have a Durable POA for Healthcare: No - Code Status/Comfort Care Code Status Assessed: Yes (patient is full code) Time Spent Managing Pts Care (In Minutes): 55
[2020-07-30] MEDS ORDERED: LORazepam 2 MG/ML VIAL ONE (16:26)
[2020-07-30] MEDS ORDERED: ONDANSETRON 4 MG/2 ML VIAL IV PRN (18:05)
[2020-07-30] MEDS ORDERED: IPRATROPIUM BROM 0.5MG/2.5ML NEB PRN (18:05)
[2020-07-30] MEDS ORDERED: ALBUTEROL 2.5 MG/3 ML NEB SOL NEB PRN (18:05)
[2020-07-30] MEDS ORDERED: ACETAMINOPHEN 500 MG TAB PO PRN (18:05)
[2020-07-30] MEDS ORDERED: ENOXAPARIN 80 MG/0.8 ML SQ ONE (18:30)
[2020-07-30 19:03] LABS: Urine Appearance CLEAR; Urine Bilirubin NEGATIVE (NEG); Urine Blood NEGATIVE (NEG); Urine Color DK YELLOW; Urine Glucose NEGATIVE (NEG); Urine Protein 1+ (NEG); Urine pH 5.5 (5.0-7.0)
[2020-07-30 19:05] LABS: Urine Microscopic Reflex ORDER UMIC
[2020-07-30 19:19] LABS: Urine Bacteria <20 /HPF (NONE SEEN); Urine Culture Reflex Order REFLEXED; Urine Mucus 1+ /HPF (NONE SEEN); Urine RBC <5 /HPF (NONE SEEN)
[2020-07-30] MEDS: ARFORMOTEROL TARTRATE 15 MCG/2 ML VIAL.NEB NEB SCH (19:30)
[2020-07-30] MEDS ORDERED: Levofloxacin 750mg IV 750 MG/150 ML BAG IV SCH (20:00)
--- NOTE | 2020-07-30 20:14 | RAD REPORT ---
EXAM DESCRIPTION: CT - Chest For Pe Angio - 07/30/2020 7:23 pm CLINICAL HISTORY: Elevated d dimer, Lung cancer, COPD/Pneumonia COMPARISON: CT-RAD THERAPY FLD PLACE-CHEST dated 06/13/2020; Chest Single View dated 07/30/2020 TECHNIQUE: Dynamically enhanced 3 mm thick images of the chest were obtained during administration o f approximately 150mL Isovue 370 IV contrast. Coronal and oblique MIP reconstruction images were gene rated and reviewed. Exam utilizes a protocol to evaluate the pulmonary arterial tree. All CT scans are performed using dose optimization technique as appropriate and may include automated exposure control or mA/KV adjustment according to patient size. FINDINGS: No pulmonary emboli are identified. Exam has substantial motion degradation limiting asses sment in the segmental and subsegmental branches. Probability of pulmonary embolic disease is felt to be low. The aorta as imaged shows no acute or suspicious finding. No pericardial thickening or effusion. Chronic interstitial lung disease is evident. Patchy airspace opacification is present in the inferio r aspect of the right upper lobe known mass lesion in the superior segment right lower lobe near the medial pleural margin is again identified. Due to the motion degradation accurate measurements of siz e cannot be obtained. Bilateral lower lung airspace opacification is present with air bronchogram for mation. . No pleural effusion or pleural thickening. No mediastinal or hilar suspicious masses. No chest wall masses or abnormal axillary lymphadenopathy. IMPRESSION: No pulmonary emboli identified. Motion limits far peripheral branch assessment with prob ability of distal branch embolic disease felt to be low. Airspace opacification in each posterior lower lung field. This could be infiltrate, atelectasis or a combination. Primary mass is still seen in the superior segment right lower lobe. Due to the amount of motion, no accurate size measurement can't be obtained.
[2020-07-30] MEDS: NA CHLORIDE 0.9% 1,000 ML IV SCH (20:25)
[2020-07-30] MEDS: ATORVASTATIN 10 MG TAB PO SCH (20:25)
[2020-07-30] MEDS: METHYLPREDNISOLONE 125 MG INJ IV SCH (20:26)
[2020-07-30 22:08] VITALS: BMI 27.8
[2020-07-30 22:32] LABS: CKMB Creatine Kinase MB < 1.0 ng/mL (0.3-3.6); Creatine Phosphokinase 56 U/L (39-308); Troponin I 0.11 ng/mL (0.0-0.045)
[2020-07-31] MEDS: LORazepam 2 MG/ML VIAL IV PRN ×2 (04:10→23:07)
[2020-07-31 04:12] LABS: Absolute Lymphocytes (CBC) 0.3 K/uL (0.7-4.9); Basophils % 0.1 % (0-1.3); Hematocrit 28.1 % (39.6-49.0); Lymphocytes % 5.2 % (15.3-44.8); MPV 7.7 fL (7.6-11.3); RBC Red Blood Cell Count 2.92 M/uL (4.33-5.43)
[2020-07-31 04:36] LABS: Magnesium 2.3 mg/dL (1.8-2.4); Potassium 4.9 mmol/L (3.5-5.1); Thyroid Stimulating Hormone 0.327 uIU/mL (0.360-3.740); Troponin I 0.08 ng/mL (0.0-0.045)
[2020-07-31] MEDS: NA CHLORIDE 0.9% 1,000 ML IV SCH (05:47)
[2020-07-31] MEDS: ARFORMOTEROL TARTRATE 15 MCG/2 ML VIAL.NEB NEB SCH ×2 (07:48→20:16)
[2020-07-31] MEDS: METHYLPREDNISOLONE 125 MG INJ IV SCH ×3 (09:32→20:45)
[2020-07-31] MEDS: FENOFIBRATE 48 MG TAB PO SCH (09:32)
[2020-07-31] MEDS: ENOXAPARIN 40 MG/0.4 ML SQ SCH (09:32)
[2020-07-31] MEDS: ASPIRIN EC 81 MG TAB PO SCH (09:32)
--- NOTE | 2020-07-31 11:53 | P.CNS ---
Date of Consult: 07/31/20 Primary Care Provider: Dr. Arreguin([place]); Oncology-Dr. Henao; Pulmonary-Dr. Reed Chief Complaint: Dyspnea History of Present Illness: Patient is 84 years of age been having progressive dyspnea for the past 2 weeks recently diagnosed with sad-fckac-wkag lung cancer and was undergoing chemo and radiation became much worse with shortness of breath and appeared in the hospital denies any fever chills or cough no chest pain Allergies No Known Allergies Allergy (Verified 07/30/20 18:25) Home Medications: Aspirin Chewable [Aspirin Chewable*] 81 mg PO DAILY 05/24/20 Cyanocobalamin (Vitamin B-12) [Vitamin B12] 2,500 mcg PO DAILY 05/24/20 Fenofibrate,Micronized [Fenofibrate] 1 tab PO DAILY 05/24/20 Lactobacillus Acidophilus [Probiotic] 1 each PO DAILY 05/24/20 Lisinopril [Zestril] 10 mg PO DAILY 05/24/20 Metoprolol Tartrate [Lopressor] 25 mg PO BID 05/24/20 Multivit-Min/FA/Lycopen/Lutein [Centrum Silver Men Tablet] 1 each PO DAILY 05/24/20 Psyllium Husk [Metamucil] 0.52 gm PO BID 05/24/20 Rosuvastatin [Crestor] 20 mg PO DAILY 05/24/20 - Past Medical/Surgical History Diabetic: No -: Hypertension -: Hyperlipidemia -: Pacemaker -: COPD -: Non-small cell lung cancer -: Pacemaker -: Cholecystectomy Psychosocial/ Personal History: 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 - Social History Alcohol use: No CD- Drugs: No Caffeine use: No Place of Residence: Home Review of Systems 10-point ROS is otherwise unremarkable General: Weakness Respiratory: Shortness of Breath Physical Examination Temp Pulse Resp BP Pulse Ox 96.9 F 82 20 127/70 100 07/31/20 08:00 07/31/20 08:00 07/31/20 08:00 07/31/20 08:00 07/31/20 08:00 General: Alert, Oriented x3 Respiratory: Clear to auscultation bilaterally Cardiovascular: No edema, Normal S1 S2 Gastrointestinal: Normal bowel sounds, Soft and benign Laboratory Data (last 24 hrs) 07/30/20 14:10: PT 12.4, INR 1.05, APTT 27.3 07/30/20 14:10: WBC 5.5, Hgb 10.6 L, Hct 32.2 L, Plt Count 316 07/30/20 14:10: Sodium 136, Potassium 4.9, BUN 30 H, Creatinine 1.38 H, Glucose 133 H - Problems (1) Respiratory failure Current Visit: Yes Status: Acute Plan: Patient is 84 years of age with a history of COPD recently diagnosed non-small cell cancer admitted with progressive dyspnea as no evidence of thromboembolism differential diagnosis includes COPD exacerbation volume overload for radiation pneumonitis as renal function is worse scans reviewed in is mildly anemic he has been receiving chemo radiation I suspect his purcell virus negative change to p.o. prednisone Dc levofloxacin add an inhaler evaluate for home oxygen added diuretic. Lisinopril patient's BNP is significantly elevated Qualifiers: Chronicity: acute
--- NOTE | 2020-07-31 12:42 | P.PN ---
Subjective Date of Service: 07/31/20 Primary Care Provider: Dr. Arreguin([place]); Oncology-Dr. Henao; Pulmonary-Dr. eRed Chief Complaint: Dyspnea Subjective: Improving Physical Examination - Vital Signs Temperature: 96.9 F Blood Pressure: 127/70 Pulse: 82 Respirations: 20 Pulse Ox (%): 100 - Physical Exam General: Alert, In no apparent distress, Oriented x3, Cooperative HEENT: Atraumatic Neck: Supple Respiratory: Crackles/rales, Other (On BiPAP this morning) Cardiovascular: Normal pulses, Regular rate/rhythm Neurological: Normal speech, Normal strength at 5/5 x4 extr, Normal tone, Normal affect - Studies Laboratory Data (last 24 hrs) 07/30/20 14:10: PT 12.4, INR 1.05, APTT 27.3 07/30/20 14:10: WBC 5.5, Hgb 10.6 L, Hct 32.2 L, Plt Count 316 07/30/20 14:10: Sodium 136, Potassium 4.9, BUN 30 H, Creatinine 1.38 H, Glucose 133 H Medications List Reviewed: Yes Assessment & Plan Discharge Plan: Home Plan to discharge in: 24 Hours Physician Review Additional Text: Impression: Dyspnea secondary to acute respiratory failure with hypoxia likely related to COPD exacerbation, radiation pneumonitis with possible component of acute on chronic diastolic CHF Renal insufficiency likely dehydration Non small lung cancer on chemotherapy with prior radiation Hypertension Hyperlipidemia History of pacemaker Anemia likely of chronic disease Plan: Dyspnea secondary to acute respiratory failure with hypoxia likely related to COPD exacerbation, radiation pneumonitis with possible component of acute on chronic diastolic CHF: Case discussed with pulmonology. CT scan revealed no pulmonary embolism. Pulmonology suspects acute respiratory failure likely related to COPD exacerbation, radiation pneumonitis with probably component of CHF. Will obtain echocardiogram. IV fluids discontinued. IV Levaquin discontinued. Continue steroids. Wean off BiPAP. Patient will likely require oxygen at discharge. Patient started on IV Lasix. Continue DVT prophylaxis. Anticipate improvement over the next 24 hr with possible discharge at that time. Renal insufficiency likely dehydration: Will provide medication. Hold lisinopril at this time. May need to restart once renal function improved. Patient to receive IV Lasix. Non small lung cancer on chemotherapy with prior radiation: Patient currently on chemotherapy. He was to received his 6th treatment this week. Continue with above recommendation. Hypertension: Hold lisinopril at this time. Restart metoprolol with parameters. Hyperlipidemia: Continue medication History of pacemaker: Stable. Will monitor cardiac enzymes and telemetry. Will order echocardiogram to further evaluate. Anemia likely of chronic disease with B12 deficiency: Monitor closely. Restart B12 Time Spent Managing Pts Care (In Minutes): 55
[2020-07-31] MEDS: FUROSEMIDE 40 MG/4 ML VIAL IV SCH (13:03)
--- NOTE | 2020-07-31 13:11 | ECHO ---
HEIGHT: 5 ft 8 in WEIGHT: 182 lb 14.4 oz DATE OF STUDY: 07/31/[address]: Andrew Rios DO 2-DIMENSIONAL: YES M.MODE: YES DOPPLER: YES COLOR FLOW: YES TDS: YES PORTABLE: DEFINITY: BUBBLE STUDY: DIAGNOSIS: SHORTNESS OF BREATH CARDIAC HISTORY: CATHERIZATION: NO SURGERY: NO PROSTHETIC VALVE: NO PACEMAKER: YES MEASUREMENTS (cm) DIASTOLIC (NORMALS) SYSTOLIC (NORMALS) IVSd 0.9 (0.6-1.2) LA Diam 3.4 (1.9-4.0) LVEF 35-40% LVIDd 5.3 (3.5-5.7) LVIDs 3.7 (2.0-3.5) %FS % LVPWd 1.1 (0.6-1.2) Ao Diam 2.9 (2.0-3.7) 2 DIMENSIONAL ASSESSMENT: RIGHT ATRIUM: NORMAL LEFT ATRIUM: NORMAL RIGHT VENTRICLE: NORMAL LEFT VENTRICLE: NORMAL SIZE TRICUSPID VALVE: NORMAL MITRAL VALVE: NORMAL PULMONIC VALVE: NORMAL AORTIC VALVE: SCLEROSIS PERICARDIAL EFFUSION: NONE AORTIC ROOT: NORMAL LEFT VENTRICULAR WALL MOTION: PARADOXICAL SEPTUM. MODERATE GLOBAL HYPOKINESIS. DOPPLER/COLOR FLOW: MILD TRICUSPID REGURGITATION. COMMENTS: MODERATE GLOBAL HYPOKINESIS. EJECTION FRACTION 35-40%. MILD TRICUSPID REGURGITATION. NORMAL RIGHT VENTRICULAR SYSTOLIC PRESSURE. PARADOXICAL SEPTUM. AORTIC SCLEROSIS - NO STENOSIS. TECHNOLOGIST: BOOKER MATTHEWS
[2020-07-31] MEDS: METOPROLOL TAR 25 MG TAB PO SCH (20:44)
[2020-07-31] MEDS: ATORVASTATIN 10 MG TAB PO SCH (20:44)
[2020-08-01 06:05] LABS: Absolute Lymphocytes (CBC) 0.2 K/uL (0.7-4.9); Basophils % 0.1 % (0-1.3); Hematocrit 27.5 % (39.6-49.0); Lymphocytes % 4.6 % (15.3-44.8); MPV 7.6 fL (7.6-11.3); RBC Red Blood Cell Count 2.86 M/uL (4.33-5.43)
[2020-08-01 06:43] LABS: Magnesium 2.4 mg/dL (1.8-2.4); Potassium 4.4 mmol/L (3.5-5.1)
[2020-08-01] MEDS: ARFORMOTEROL TARTRATE 15 MCG/2 ML VIAL.NEB NEB SCH (07:35)
[2020-08-01] MEDS ORDERED: FENOFIBRATE 160 MG TAB PO SCH (09:00)
[2020-08-01] MEDS ORDERED: MULTIVIT W/ MINERAL TAB PO SCH (09:00)
[2020-08-01] MEDS ORDERED: LACTOBACILLUS/ACIDOPHILUS TAB PO SCH (09:00)
[2020-08-01] MEDS ORDERED: CYANOCOBALAMIN 1,000 MCG TAB PO SCH (09:00)
[2020-08-01] MEDS: FENOFIBRATE 48 MG TAB PO SCH (09:00)
[2020-08-01] MEDS: ASPIRIN EC 81 MG TAB PO SCH (09:12)
[2020-08-01] MEDS: FUROSEMIDE 40 MG/4 ML VIAL IV SCH (09:12)
[2020-08-01] MEDS: METHYLPREDNISOLONE 125 MG INJ IV SCH ×2 (09:12→13:36)
[2020-08-01] MEDS: METOPROLOL TAR 25 MG TAB PO SCH (09:13)
[2020-08-01] MEDS: ENOXAPARIN 40 MG/0.4 ML SQ SCH (09:14)
[2020-08-01 12:16] VITALS: O2SAT 96
--- NOTE | 2020-08-01 13:17 | P.DS ---
Admission Date: 07/30/20 Discharge Date: 08/01/20 Primary Care Provider: Dr. Arreguin([place]); Oncology-Dr. Henao; Pulmonary-Dr. Reed Disposition: DC HOME/HOME HEALTH CARE Discharge Condition: GOOD Reason for Admission: Dyspnea Consultations: Pulmonary-Dr. Reed Cardiology-Dr. Edmond Procedures: CT Scan: FINDINGS: No pulmonary emboli are identified. Exam has substantial motion degradation limiting assessment in the segmental and subsegmental branches. Probability of pulmonary embolic disease is felt to be low. The aorta as imaged shows no acute or suspicious finding. No pericardial thickening or effusion. Chronic interstitial lung disease is evident. Patchy airspace opacification is present in the inferior aspect of the right upper lobe known mass lesion in the superior segment right lower lobe near the medial pleural margin is again identified. Due to the motion degradation accurate measurements of size cannot be obtained. Bilateral lower lung airspace opacification is present with air bronchogram formation. . No pleural effusion or pleural thickening. No mediastinal or hilar suspicious masses. No chest wall masses or abnormal ax illary lymphadenopathy. IMPRESSION: No pulmonary emboli identified. Motion limits far peripheral branch assessment with probability of distal branch embolic disease felt to be low. Airspace opacification in each posterior lower lung field. This could be infiltrate, atelectasis or a combination. Primary mass is still seen in the superior segment right lower lobe. Due to the amount of motion, no accurate size measurement can't be obtained. ECHO: EF 35% LEFT VENTRICULAR WALL MOTION: PARADOXICAL SEPTUM. MODERATE GLOBAL HYPOKINESIS. DOPPLER/COLOR FLOW: MILD TRICUSPID REGURGITATION. COMMENTS: MODERATE GLOBAL HYPOKINESIS. EJECTION FRACTION 35-40%. MILD TRICUSPID REGURGITATION. NORMAL RIGHT VENTRICULAR SYSTOLIC PRESSURE. PARADOXICAL SEPTUM. AORTIC SCLEROSIS NO STENOSIS. Medical Problem List: Dyspnea secondary to acute respiratory failure with hypoxia likely related to COPD exacerbation, radiation pneumonitis with possible component of acute on chronic systolic CHF Renal insufficiency likely dehydration Non small lung cancer on chemotherapy with prior radiation Hypertension Hyperlipidemia History of pacemaker Anemia likely of chronic disease Brief History of Present Illness: 84-year-old male with history of pacemaker, hypertension, COPD, hyperlipidemia and recent non-small cell lung cancer. Patient has been treated over the past 5 weeks with chemotherapy for non-small lung cancer. Patient has a history of COPD that is managed by Pulmonary. Patient was to get his 6th treatment over the past 5 weeks today. Patient reported increasing shortness of breath at the cancer center. Due to his shortness of breath the patient was sent to the ER for further evaluation. Patient reported fever, cough, and shortness of breath over the last 3 day. P atient was given Medrol Dosepak and Zithromax on Thursday. No exposure to COVID noted. In the ER patient was evaluated. Patient was severely hypoxic with O2 sats in the 80s. Patient was slightly tachypneic and tachycardic. Patient required BiPAP upon initial evaluation. Patient currently stable at this time. White count 5.5, hemoglobin 10.6. Sodium 136, potassium 4.9, BUN of 30, creatinine 1 .3 with a GFR 49. Pro calcitonin negative. Lactic acid 3.7. Troponin 0.06. Chest x-ray shows left base pneumonia with right upper lobe pneumonia. Blood gases showed a pH is 7.46 with pCO2 29 and a P O2 of 56. Patient admitted for further evaluation and treatment. When I saw the patient ER, patient appeared stable. Patient on BiPAP. Son at bedside. Patient uses inhaler at home. Hospital Course: Patient presented with dyspnea secondary to acute respiratory failure with hypoxia related to COPD exacerbation, radiation pneumonitis with possible component of acute on chronic systolic CHF. The patient was admitted for treatment. CT scan revealed no pulmonary embolism. The patient responded well to IV steroids and treatment. Patient seen and evaluated by Cardiology and pulmonology. Echocardiogram shows ejection fraction around 35%. Patient has done well. Patient will require home oxygen at discharge. Patient will continue with home oxygen at 2 liters/minute to maintain sats above 93%. At discharge patient will continue with prednisone 20 mg 1 pill twice daily for 5 days then 1 pill once daily for 5 days. For his COPD patient will continue with Trelegy 1 puff daily and Xopenex inhaler 2 puffs 3 times a day as needed for shortness of breath. Recommend follow up with pulmonology in 1-2 weeks to follow up this hospitalization. For his CHF. Patient has systolic dysfunction. Ejection fraction 35%. Patient was treated with Lasix. At discharge patient will continue with a 1500 cc per day fluid restriction and low-salt diet. Recommend to monitor his weight daily. 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 At discharge patient will continue with 20 mg Lasix daily. Recommend follow up with cardiology in 1-2 weeks to follow up this hospitalization. Further adjustment can be done by cardiology. Patient had some renal insufficiency. Medications have been adjusted. Lisin opril was discontinued due to this. Patient previously on lisinopril 10 mg daily. Recommend to recheck lab-BMP in 1-2 weeks to monitor his progress. Consider restarting lisinopril if blood pressures remain above 140/90 consistently. Patient with hypertension. As mentioned above lisinopril was discontinued due to renal insufficiency. At discharge patient will continue with metoprolol 25 mg 1 pill twice daily. Blood pressure is well controlled. Recommend to monitor blood pressure daily. Recommend to maintain blood pressure less than 150/80. If consistently above 140/90 then lisinopril may need to be restarted. This can be further addressed by his PCP or cardiology. Patient with hyperlipidemia. At discharge patient will continue with his medication of Crestor 20 mg daily. Patient with anemia of chronic disease and B12 deficiency. At discharge he will continue with B12 supplementation. Patient with history of pacemaker. This has remained stable. Recommend follow up with cardiology as directed. Patient may continue with aspirin 81 mg daily. Patient with [id number] lung cancer on chemotherapy and radiation. Patient should follow up with oncology as directed. Patient should follow up with Radiology Oncology to decide when to restart radiation. Vital Signs/Physical Exam: Temp Pulse Resp BP Pulse Ox 96.8 F 108 H 17 110/64 96 08/01/20 12:00 08/01/20 12:00 08/01/20 12:00 08/01/20 12:00 08/01/20 12:00 General: Alert, In no apparent distress, Oriented x3, Cooperative HEENT: Atraumatic Neck: Supple Respiratory: Clear to auscultation bilaterally, Normal air movement, Other (Currently on 2 L per nasal cannula) Cardiovascular: Normal pulses, Regular rate/rhythm Gastrointestinal: Normal bowel sounds Integumentary: No tenderness/swelling, No erythema, No warmth, No cyanosis Neurological: Normal speech, Normal strength at 5/5 x4 extr, Normal tone, Normal affect Laboratory Data at Discharge: WBC 4.3 K/uL (4.3-10.9) D 08/01/20 05:33 Hgb 9.5 g/dL (13.6-17.9) L 08/01/20 05:33 Hct 27.5 % (39.6-49.0) L 08/01/20 05:33 Plt Count 320 K/uL (152-406) 08/01/20 05:33 PT 12.4 SECONDS (9.5-12.5) 07/30/20 14:10 INR 1.05 07/30/20 14:10 APTT 27.3 SECONDS (24.3-36.9) 07/30/20 14:10 Sodium 137 mmol/L (136-145) 08/01/20 05:33 Potassium 4.4 mmol/L (3.5-5.1) 08/01/20 05:33 BUN 32 mg/dL (7-18) H 08/01/20 05:33 Creatinine 1.15 mg/dL (0.55-1.3) 08/01/20 05:33 Glucose 126 mg/dL (74-106) H 08/01/20 05:33 Magnesium 2.4 mg/dL (1.8-2.4) 08/01/20 05:33 Troponin I 0.08 ng/mL (0.0-0.045) H 07/31/20 03:41 Triglycerides 178 mg/dL (<150) H 07/31/20 03:41 Cholesterol 105 mg/dL (<200) 07/31/20 03:41 HDL Cholesterol 19 mg/dL (40-60) L 07/31/20 03:41 Cholesterol/HDL Ratio 5.53 07/31/20 03:41 Home Medications: Aspirin Chewable [Aspirin Chewable*] 81 mg PO DAILY 05/24/20 Cyanocobalamin (Vitamin B-12) [Vitamin B12] 2,500 mcg PO DAILY 05/24/20 Fenofibrate,Micronized [Fenofibrate] 1 tab PO DAILY 05/24/20 Lactobacillus Acidophilus [Probiotic] 1 each PO DAILY 05/24/20 Metoprolol Tartrate [Lopressor*] 25 mg PO BID 05/24/20 Multivit-Min/FA/Lycopen/Lutein [Centrum Silver Men Tablet] 1 each PO DAILY 05/24/20 Psyllium Husk [Metamucil] 0.52 gm PO BID 05/24/20 Rosuvastatin [Crestor*] 20 mg PO DAILY 05/24/20 Fluticasone/Umeclidin/Vilanter [Trelegy Ellipta 100-62.5-25] 1 each IH DAILY #1 blst.w.dev 08/01/20 Furosemide [Lasix] 20 mg PO DAILY #30 tab 08/01/20 Levalbuterol Tartrate [Xopenex Hfa] 2 puff IH TID PRN #1 hfa.aer.ad 08/01/20 predniSONE [Prednisone*] 20 mg PO SEECOM #15 tab 08/01/20 New Medications: Furosemide [Lasix] 20 mg PO DAILY #30 tab predniSONE [Prednisone*] 20 mg PO SEECOM #15 tab Fluticasone/Umeclidin/Vilanter [Trelegy Ellipta 100-62.5-25] 1 each IH DAILY #1 blst.w.dev Levalbuterol Tartrate [Xopenex Hfa] 2 puff IH TID PRN #1 hfa.aer.ad PRN Reason: Shortness Of Breath Patient Discharge Instructions: 1. Recommend follow up with PCP in 1 week. 2. Patient presented with dyspnea secondary to acute respiratory failure with hypoxia related to COPD exacerbation, radiation pneumonitis with possible component of acute on chronic systolic CHF. The patient was admitted for treatment. CT scan revealed no pulmonary embolism. The patient responded well to IV steroids and treatment. Patient seen and evaluated by Cardiology and pulmonology. Echocardiogram shows ejection fraction around 35%. Patient has done well. Patient will require home oxygen at discharge. Patient will continue with home oxygen at 2 liters/minute to maintain sats above 93%. At discharge patient will continue with prednisone 20 mg 1 pill twice daily for 5 days then 1 pill once daily for 5 days. For his COPD patient will continue with Trelegy 1 puff daily and Xopenex inhaler 2 puffs 3 times a day as needed for shortness of breath. Recommend follow up with pulmonology in 1-2 weeks to follow up this hospitalization. 3. For his CHF. Patient has systolic dysfunction. Ejection fraction 35%. Patient was treated with Lasix. At discharge patient will continue with a 1500 cc per day fluid restriction and low-salt diet. Recommend to monitor his weight daily. 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 At discharge patient will continue with 20 mg Lasix daily. Recommend follow up with cardiology in 1-2 weeks to follow up this hospitalization. Further adjustment can be done by cardiology. 4. Patient had some renal insufficiency. Medications have been adjusted. Lisinopril was discontinued due to this. Patient previously on lisinopril 10 mg daily. Recommend to recheck lab-BMP in 1-2 weeks to monitor his progress. Consider restarting lisinopril if blood pressures remain above 140/90 consistently. 5. Patient with hypertension. As mentioned above lisinopril was discontinued due to renal insufficiency. At discharge patient will continue with metoprolol 25 mg 1 pill twice daily. Blood pressure is well controlled. Recommend to monitor blood pressure daily. Recommend to maintain blood pressure less than 150/80. If consistently above 140/90 then lisinopril may need to be restarted. This can be further addressed by his PCP or cardiology. Patient may also continue with aspirin 81 mg daily. 6. Patient with hyperlipidemia. At discharge patient will continue with his medication of Crestor 20 mg daily. 7. Patient with anemia of chronic disease and B12 deficiency. At discharge he will continue with B12 supplementation. 8. Patient with history of pacemaker. This has remained stable. Recommend follow up with cardiology as directed. 9. Patient with [id number] lung cancer on chemotherapy and radiation. Patient should follow up with oncology as directed. Patient should follow up with Radiology Oncology to decide when to restart radiation. 10. Home health and physical therapy can be arranged prior to discharge. Diet: AHA Activity: Ad loco Time spent managing pt's care (in minutes): 55
[2020-08-01] MEDS ORDERED: Levofloxacin 750mg IV 750 MG/150 ML BAG IV SCH (15:30)
[2020-08-01 17:14] VITALS: BP 145/76; TEMP 97.2
== END 2020-08-01 16:00 | disposition home health service (06) | DRG 189 ==
LOC: ER 13:58 → ERHOLD 16:10 → 2ND 17:44
PROVIDERS: ADMIT Family Medicine; ATTEND Family Medicine
PROC: 5A09457 Assistance with Respiratory Ventilation, 24-96 Consecutive Hours, Continuous Positive Airway Pressure (ICD-10-PCS; principal; 2020-07-30)
DX: J96.01 Acute respiratory failure with hypoxia (principal); I50.33 Acute on chronic diastolic (congestive) heart failure; C34.90 Malignant neoplasm of unspecified part of unspecified bronchus or lung; J44.1 Chronic obstructive pulmonary disease with (acute) exacerbation; J70.0 Acute pulmonary manifestations due to radiation; I11.0 Hypertensive heart disease with heart failure; N28.9 Disorder of kidney and ureter, unspecified; D63.8 Anemia in other chronic diseases classified elsewhere; D51.9 Vitamin B12 deficiency anemia, unspecified; E86.0 Dehydration; E78.5 Hyperlipidemia, unspecified; Z95.0 Presence of cardiac pacemaker; Z79.82 Long term (current) use of aspirin; Z79.899 Other long term (current) drug therapy; Z90.49 Acquired absence of other specified parts of digestive tract; Z87.891 Personal history of nicotine dependence; Z20.828 Contact with and (suspected) exposure to other viral communicable diseases
CPT/HCPCS: 36415; 71045; 71275; 80048; 80061; 81003; 81015; 82550; 82553; 82805; 83605; 83735; 83880; 84145; 84439; 84443; 84484; 85025; 85379; 85610; 85730; 86140; 87040; 87086; 87088; 93005; 93306; 94660; 94760; 96365; 96366; 96375; 99291; J1100; J1650; J1940; J2930; J7030; J7605; Q9967; U0003

== ENCOUNTER 2020-08-09 13:37 | Observation (INO) | payer OTHER ==
--- OUTSIDE RECORDS SUMMARY | 2020-08-09 13:42 | XMS REPORT | Continuity of Care Document ---
:1935 Author Organization [facility] t Address [address] [place] [address] Care Team Providers Name Role Phone JENIFER Primary Care Physician Unavailable JENIFER Attending Clinician Unavailable JENIFER Admitting Clinician Unavailable Problems Condition Condition Condition Status Onset Resolution Last Treating Co mments Source Name Details Category Date Date Treatment Clinician Date Benign Benign Problem Active [place] prostatic Prostatic da hyperplasi Hyperplasi [facility] Allergies, Adverse Reactions, Alerts This patient has no known allergies or adverse reactions. Social History Smoking Status Start Date Stop Date Source Former Smoker [facility] Medications Ordered Filled Start Stop Current Ordering Indication Dosage Frequency Signature Comments Components Source Medication Medication Date Date Medication? Clinician (SIG) Name Name amoxicillin amoxicillin No 1 BID amoxicilli [place] [...] Source BP Diastolic 2020-01-26 00:00:00 82 mm[Hg] [facility] BP Systolic 2020-01-26 00:00:00 120 mm[Hg] [facility] Body Weight 2020-01-26 00:00:00 202.5 [lb_av] [facility] Procedures Procedure Date / Time Performed Performing Clinician [facility] e TYMPANOMETRY 2020-01-26 00:00:00 [facility] Cataract [facility] Cholecystectomy [facility] Plan of Care Planned Activity Planned Date Details Comments Source Instructions [facility] Encounters Start End Encounter Admission Attending Care Care Encounter Source Date/Time Date/Time Type Type Clinicians Facility Department ID 2020-01-26 2020-01-26 Nicolle F[place]ANG [place] - [id number] [place] 00:00:00 00:00:00 MD Al: [facility] [address] [facility] [address] [place], [place] - [address], [place], [place] [address] , Ph. 2017-12-03 2017-12-03 Outpatient [facility] [id number] 22:33:00 22:33:00 [facility] Results Test Description Test Time Test [...] code = ALYMPH) 1.6 K/cumm 0.5-4.6 N Fajardo Abs (test code = AMONO) 0.4 K/cumm 0.0-1.2 N Eos Abs (test code = AEOS) 0.17 K/cumm 0.00-0.74 N Baso Abs (test code = ABASO) 0.0 K/cumm 0.00-0.21 N PSA, Medicare [id number] 23:03:00 Test Item Value Reference Range Interpretation [...] or men withnon-prostat ic carcinoma. Comprehensive Metabolic [id number] 23:01:00 Test Item Value Reference Range Interpretation [...] the National Kidney Foundation,http ://nkd ep.nih.gov Lipid [id number] 23:01:00 Test Item Value Reference Range Interpretation Comments Cholesterol (test 123 mg/dL 0-200 N code = CHOL) Triglycerides (test 168 mg/dL 9-200 N code = TRIG) HDL (test code = 27 mg/dL 40-60 L HDL) Chol/HDL (test code 4.6 Ratio 0.0-5.0 N = CHOLPHDL) LDL, Calculated 62 0-130 N (NOTE)RISK O F HEART (test code = LDLC) DISEASEPu blished by [place] Heart AssociationAnal yte Optim al Boderline Increased RiskC HOL <200 200-239 >240TRI G <150 150-199 >200HDL Male: >60 <40HDL Female: >60 <50 LDL < 100 130-15 9 >160 LDL NEAR OPTIMAL IS 100- 129 VLDL (test code = 34 mg/dL 5-40 N VLDL) LDL/HDL (test code = 2 LDLPHDL) [id number] 22:57:00 Test Item Value Reference Range Interpretation Comments NT ProBnp (test code = PBNP) 260 pg/mL 0-449 N
[2020-08-09 16:05] LABS: Absolute Lymphocytes (CBC) 0.2 K/uL (0.7-4.9); Basophils % 0.7 % (0-1.3); Hematocrit 28.9 % (39.6-49.0); Lymphocytes % 2.2 % (15.3-44.8); MPV 7.1 fL (7.6-11.3); RBC Red Blood Cell Count 3.03 M/uL (4.33-5.43)
[2020-08-09 16:17] LABS: Protime INR 1.11
--- NOTE | 2020-08-09 16:20 | RAD REPORT ---
EXAM DESCRIPTION: RAD - Chest Single View - 08/09/2020 4:01 pm CLINICAL HISTORY: DYSPNEA COMPARISON: Portable July 30 TECHNIQUE: AP portable chest image was obtained 08/09/2020 4:01 pm . FINDINGS: Lung volumes are low. Interstitial and scattered alveolar opacities are present. Findings are not substantially different in the left base. Posterior right base findings are not substantially different. The right upper lobe appears slightly worse. Heart and vasculature are normal. No measurable pleural effusion and no pneumothorax. No acute bony abnormality seen. No acute aortic f indings suspected. IMPRESSION: Bilateral lung base alveolar opacification from infiltrate and/ or atelectasis similar t o comparison. Slight worsening of the right upper lobe infiltrative changes since comparison.
[2020-08-09 16:25] LABS: Albumin 2.8 g/dL (3.4-5.0); Bilirubin Direct 0.2 mg/dL (0-0.2); Bilirubin Total 0.4 mg/dL (0.2-1.0); Magnesium 2.3 mg/dL (1.8-2.4); Potassium 4.3 mmol/L (3.5-5.1); Troponin (Emerg Dept Use Only) 0.11 ng/mL (0.0-0.045)
--- NOTE | 2020-08-09 17:22 | ER ---
Nurse's Notes [facility] Name: Fabrice Christopher Age: 85 yrs Sex: Male : 1935 Arrival Date: 08/09/2020 Time: 13:37 Bed 27 Private MD: Benjamin Reed K Diagnosis: Chronic obstructive pulmonary disease, unspecified;Pulmonary edema;Dyspnea, unspecified;Unspecified combined systolic (congestive) and diastolic (congestive) heart failure Presentation: 08/09 13:52 Chief complaint: Patient states: Difficulty of breathing and SOB this morning. Was ca1 admitted in the hospital and has just been discharged Thursday a week ago for the same thing. PT has Lung Ca, on radiation treatment, last session was yesterday. Chemotherapy last session was 3 weeks ago, 07/30/2020. Reports cough that is baseline. Denies fever. On continuous O2 at 2LPM, now up at 3LPM because of the SOB Patient's son or daughter states: Son: His home health nurse came by and said he might be holding fluids in his lungs again. And then the cancer center called and advise us to come to the ER. Coronavirus screen: Client denies travel out of the [place] in the last 14 days. The client reports previous COVID testing was negative. Date of collection: July 29, 2020. Ebola Screen: Patient negative for fever greater than or equal to 101.5 degrees Fahrenheit, and additional compatible Ebola Virus Disease symptoms Patient denies exposure to infectious person. Patient denies travel to an Ebola-affected area in the 21 days before illness onset. No symptoms or risks identified at this time. Initial Sepsis Screen: Does the patient meet any 2 criteria? No. Patient's initial sepsis screen is negative. Does the patient have a suspected source of infection? No. Patient's initial sepsis screen is negative. Risk Assessment: Do you want to hurt yourself or someone else? Patient reports no desire to harm self or others. Onset of symptoms was August 09, 2020. 13:52 Method Of Arrival: Wheelchair ca1 13:52 Acuity: CYNDY 3 ca1 Historical: - Allergies: 14:02 No Known Allergies; ca1 - PMHx: 14:02 Lung CA; Hypertension; Pacemaker; Atrial Fib; ca1 - PSHx: 14:02 Cholecystectomy; ca1 - Immunization history:: Adult Immunizations unknown. - Social history:: Smoking status: Patient/guardian denies using tobacco, the patient reports quitting approximately 25 years ago. - Family history:: not pertinent. - Hospitalizations: : No recent hospitalization is reported. Screenin:50 Abuse screen: Denies threats or abuse. Denies injuries from another. Nutritional jl7 screening: No deficits noted. Tuberculosis screening: No symptoms or risk factors identified. 15:55 Fall Risk IV access (20 points). Total Duran Fall Scale indicates No Risk (0-24 pts). jl7 Assessment: 14:50 General: Appears in no apparent distress. uncomfortable, Behavior is calm, cooperative, jl7 appropriate for age. Pain: Denies pain. Neuro: Level of Consciousness is awake, alert, obeys commands, Oriented to person, place, time, situation. Cardiovascular: Patient's skin is warm and dry. Rhythm is atrial pacer. Respiratory: Airway is patent Respiratory effort is even, labored, Respiratory pattern is symmetrical, tachypnea GI: No signs and/or symptoms were reported involving the gastrointestinal system. : No signs and/or symptoms were reported regarding the genitourinary system. EENT: No signs and/or symptoms were reported regarding the EENT system. Derm: Skin is pink, warm \T\ dry. 16:00 Reassessment: Patient appears in no apparent distress at this time. No changes from jl7 previously documented assessment. Patient and/or family updated on plan of care and expected duration. Pain level reassessed. Patient is alert, oriented x 3, equal unlabored respirations, skin warm/dry/pink. 17:00 Reassessment: SOTO at bedside discussing results and POC. jl7 17:39 Reassessment: Dr. Fontenot at bedside. jl7 18:49 Reassessment: Patient appears in no apparent distress at this time. No changes from jl7 previously documented assessment. Patient and/or family updated on plan of care and expected duration. Pain level reassessed. Patient is alert, oriented x 3, equal unlabored respirations, skin warm/dry/pink. Pt will be transferred to the floor after shift change. 19:45 Reassessment: Patient and/or family updated on plan of care and expected duration. Pain aj1 level reassessed. Patient awaiting bed assigned for admission. General: Appears in no apparent distress. comfortable, Behavior is calm, cooperative, appropriate for age. Pain: Denies pain. Neuro: Level of Consciousness is awake, alert, obeys commands, Oriented to person, place, time, situation. Cardiovascular: Patient's skin is warm and dry. Rhythm is ventricular pacer. Respiratory: Reports shortness of breath on exertion cough that is persistent Airway is patent Respiratory effort is even, unlabored, Respiratory pattern is regular, symmetrical, Breath sounds with crackles bilaterally. Derm: No signs and/or symptoms reported regarding the dermatologic system. Skin is pink, warm \T\ dry. normal. Musculoskeletal: No signs and/or symptoms reported regarding the musculoskeletal system. Circulation, motion, and sensation intact. 20:54 Reassessment: Patient appears in no apparent distress at this time. No changes from aj1 previously documented assessment. Patient and/or family updated on plan of care and expected duration. Pain level reassessed. Patient is alert, oriented x 3, equal unlabored respirations, skin warm/dry/pink. Patient awaiting bed assignment for admission, household chores aware. 21:57 Reassessment: Patient appears in no apparent distress at this time. No changes from aj1 previously documented assessment. Patient and/or family updated on plan of care and expected duration. Pain level reassessed. Patient is alert, oriented x 3, equal unlabored respirations, skin warm/dry/pink. Vital Signs: 13:52 BP 119 / 63; Pulse 113; Resp 19 S; Temp 97.9(TE); Pulse Ox 93% on 3 lpm NC; Weight ca1 78.02 kg (R); Height 5 ft. 8 in. (172.72 cm) (R); 14:30 BP 124 / 66; Pulse 106; Resp 28 S; Pulse Ox 97% on 3 lpm NC; jl7 15:56 BP 104 / 59; Pulse 105; Resp 28 S; Pulse Ox 95% on 3 lpm NC; jl7 17:36 BP 121 / 75; Pulse 107; Resp 24; Pulse Ox 94% ; jl7 18:49 BP 102 / 56; Pulse 116; Resp 24 S; Pulse Ox 96% on 2 lpm NC; jl7 20:54 BP 104 / 61; Pulse 101; Resp 24; Pulse Ox 97% on 2 lpm NC; aj1 21:20 BP 112 / 61; Pulse 100; Resp 24; Pulse Ox 97% on 2 lpm NC; aj1 21:57 BP 114 / 72; Pulse 103; Resp 22; Pulse Ox 97% on 2 lpm NC; aj1 13:52 Body Mass Index 26.15 (78.02 kg, 172.72 cm) ca1 ED Course: 13:37 Patient arrived in ED. ag5 13:37 Benjamin Reed MD is Private Physician. ag5 13:57 Triage completed. ca1 14:02 Arm band placed on right wrist. ca1 14:41 Arnold Raymond MD is Attending Physician. rn 14:48 Manjit Rivera RN is Primary Nurse. jl7 14:48 Patient has correct armband on for positive identification. Placed in gown. Bed in low jl7 position. Call light in reach. Side rails up X2. general practice on. Pulse ox on. NIBP on. 14:49 EKG done, by ED staff, reviewed by Arnold Raymond MD. jl7 15:45 Inserted saline lock: 20 gauge in right wrist, using aseptic technique. Blood collected.jl7 15:45 Initial lab(s) drawn, by me, sent to lab. First set of blood cultures drawn by me. jl7 16:01 XRAY Chest (1 view) In Process Unspecified. EDMS 17:21 Noe Fontenot MD is Hospitalizing Provider. rn 17:36 No provider procedures requiring assistance completed. Patient admitted, IV remains in jl7 place. intact, No redness/swelling at site. 21:36 Report given to TWYLA Taylor on 2nd floor. aj1 21:58 Patient admitted, IV remains in place. intact, No redness/swelling at site. aj1 Administered Medications: 17:10 Drug: SOLU-Medrol 125 mg Route: IVP; Site: right wrist; jl7 18:51 Follow up: Response: No adverse reaction jl7 17:10 Drug: Xopenex (3) 1.25 mg Route: Inhalation; jl7 18:51 Follow up: Response: No adverse reaction jl7 17:15 Drug: Pepcid 20 mg Route: IVP; Site: right wrist; jl7 18:51 Follow up: Response: No adverse reaction jl7 Outcome: 17:22 Decision to Hospitalize by Provider. rn 21:59 Admitted to Tele accompanied by tech, via wheelchair, with oxygen, with chart. aj1 21:59 Condition: stable 21:59 Discharge instructions given to patient, family, Instructed on the need for admit, Demonstrated understanding of instructions. 22:01 Patient left the ED. aj1 Signatures: Dispatcher [employer] Erin Da Silva RN RN aj1 Arnold Raymond MD MD rn Leal, Jahala, RN RN jl7 Melissa Valladares RN TWYLA ca1 Pedro Villareal ag5 Corrections: (The following items were deleted from the chart) 19:45 Reassessment: Patient and/or family updated on plan of care and expected aj1 duration. Pain level reassessed. aj1 20:54 Reassessment: Patient appears in no apparent distress at this time. No changes aj1 from previously documented assessment. Patient and/or family updated on plan of care and expected duration. Pain level reassessed. Patient is alert, oriented x 3, equal unlabored respirations, skin warm/dry/pink. aj1 :58 21:20 BP 112 / 61; Pulse 100bpm; Resp 24bpm; Pulse Ox 97% RA; aj1 aj1
--- NOTE | 2020-08-09 17:22 | EDPHYS ---
Physician Documentation [facility] Name: Fabrice Christopher Age: 85 yrs Sex: Male : 1935 Arrival Date: 08/09/2020 Time: 13:37 Bed 27 Private MD: Benjamin Reed K ED Physician Arnold Raymond HPI: 08/09 16:17 This 85 yrs old Male presents to ER via Wheelchair with complaints of rn Breathing Difficulty. 16:17 The patient has shortness of breath at rest, with light activity. Onset: The rn symptoms/episode began/occurred this morning. Duration: The symptoms are intermittent. The patient's shortness of breath is aggravated by exertion, light activity. Severity of symptoms: At their worst the symptoms were moderate in the emergency department the symptoms have improved. The patient has experienced a previous episode. The patient has been recently been admitted at [facility]. Reports recently admitted and discharged from this hospital for similar symptoms, told was result of fluid overload, reports increased sob since this morning. No fever. + dry cough. Worse with exertion.. Historical: - Allergies: 14:02 No Known Allergies; ca1 - PMHx: 14:02 Lung CA; Hypertension; Pacemaker; Atrial Fib; ca1 - PSHx: 14:02 Cholecystectomy; ca1 - Immunization history:: Adult Immunizations unknown. - Social history:: Smoking status: Patient/guardian denies using tobacco, the patient reports quitting approximately 25 years ago. - Family history:: not pertinent. - Hospitalizations: : No recent hospitalization is reported. ROS: 16:17 Constitutional: Negative for fever, chills, and weight loss, Eyes: Negative for injury, rn pain, redness, and discharge, Cardiovascular: Negative for chest pain, palpitations, and edema, Respiratory: Negative for wheezing, and pleuritic chest pain, Abdomen/GI: Negative for abdominal pain, nausea, vomiting, diarrhea, and constipation, MS/Extremity: Negative for injury and deformity, Skin: Negative for injury, rash, and discoloration, Neuro: Negative for headache, numbness, tingling, and seizure. Exam: 16:17 Constitutional: This is a well developed, well nourished patient who is awake, alert, rn + tachypneic Head/Face: Normocephalic, atraumatic. ENT: no stridor Cardiovascular: Tachycardic, regular. No pulse deficits. Respiratory: + tachypnea, no retractions Abdomen/GI: soft, non-tender MS/ Extremity: Pulses equal, no cyanosis. Equal circumference. Neuro: Awake and alert, GCS 15 Vital Signs: 13:52 BP 119 / 63; Pulse 113; Resp 19 S; Temp 97.9(TE); Pulse Ox 93% on 3 lpm NC; Weight ca1 78.02 kg (R); Height 5 ft. 8 in. (172.72 cm) (R); 14:30 BP 124 / 66; Pulse 106; Resp 28 S; Pulse Ox 97% on 3 lpm NC; jl7 15:56 BP 104 / 59; Pulse 105; Resp 28 S; Pulse Ox 95% on 3 lpm NC; jl7 17:36 BP 121 / 75; Pulse 107; Resp 24; Pulse Ox 94% ; jl7 18:49 BP 102 / 56; Pulse 116; Resp 24 S; Pulse Ox 96% on 2 lpm NC; jl7 20:54 BP 104 / 61; Pulse 101; Resp 24; Pulse Ox 97% on 2 lpm NC; aj1 21:20 BP 112 / 61; Pulse 100; Resp 24; Pulse Ox 97% on 2 lpm NC; aj1 21:57 BP 114 / 72; Pulse 103; Resp 22; Pulse Ox 97% on 2 lpm NC; aj1 13:52 Body Mass Index 26.15 (78.02 kg, 172.72 cm) ca1 MDM: 14:41 Patient medically screened. rn 17:17 Differential diagnosis: CHF exacerbation, Chronic Obstructive Pulmonary Disease rn Myocardial Infarction pneumonia, Pneumothorax pulmonary edema, reactive airway disease. Data reviewed: vital signs, nurses notes, lab test result(s), EKG, radiologic studies, plain films, and as a result, I will admit patient. Counseling: I had a detailed discussion with the patient and/or guardian regarding: the historical points, exam findings, and any diagnostic results supporting the discharge/admit diagnosis, lab results, radiology results, the need for further work-up and treatment in the hospital. Response to treatment: the patient's symptoms have mildly improved after treatment, and as a result, I will admit patient. Admission orders: after a detailed discussion of the patient's condition and case, the admit orders are written by me. ED course: Pt still tachypneic, no gross change in cxr, will admit for mixed COPD and CHF exacerbation. Borderline BP to tolerate large doses of lasix here and dc home. Son reports marked increase in exertional dyspnea.. 08/09 14:47 Order name: Blood Culture Adult (2) rn 08/09 14:47 Order name: BMP; Complete Time: 16:31 rn 08/09 14:47 Order name: CBC with Diff rn 08/09 14:47 Order name: Hepatic Function; Complete Time: 16:31 rn 08/09 14:47 Order name: Magnesium; Complete Time: 16:31 rn 08/09 14:47 Order name: NT PRO-BNP; Complete Time: 16:31 rn 08/09 14:47 Order name: PT-INR; Complete Time: 16:31 rn 08/09 14:47 Order name: Ptt, Activated; Complete Time: 16:31 rn 08/09 14:47 Order name: Troponin (emerg Dept Use Only); Complete Time: 16:31 rn 08/09 14:47 Order name: Procalcitonin; Complete Time: 16:31 rn 08/09 18:07 Order name: CBC with Automated Diff EDMS 08/09 18:07 Order name: CBC with Automated Diff EDMS 08/09 18:08 Order name: Comprehensive Metabolic Panel EDMS 08/09 18:08 Order name: Comprehensive Metabolic Panel EDMS 08/09 14:41 Order name: XRAY Chest (1 view); Complete Time: 16:23 rn 08/09 14:47 Order name: EKG; Complete Time: 14:48 rn 08/09 17:35 Order name: Diet Heart Healthy; Complete Time: 17:36 jl7 08/09 18:07 Order name: CONS Physician Consult EDMS 08/09 18:08 Order name: Magnesium EDMS 08/09 18:08 Order name: Magnesium EDMS 08/09 18:08 Order name: Phosphorus EDMS 08/09 18:08 Order name: Phosphorus EDMS 08/09 18:08 Order name: Protime (+INR) EDMS 08/09 18:08 Order name: Protime (+INR) EDMS 08/09 18:08 Order name: PTT, Activated Partial Thromb EDMS 08/09 18:08 Order name: PTT, Activated Partial Thromb EDMS 08/09 18:50 Order name: CBC Smear Scan EDCA 08/09 14:47 Order name: Cardiac monitoring; Complete Time: 14:49 rn 08/09 14:47 Order name: EKG - Nurse/Tech; Complete Time: 14:49 rn 08/09 14:47 Order name: IV Saline Lock; Complete Time: 15:50 rn 08/09 14:47 Order name: Labs collected and sent; Complete Time: 15:51 rn 08/09 14:47 Order name: O2 Per Protocol; Complete Time: 14:49 rn 08/09 14:47 Order name: O2 Sat Monitoring; Complete Time: 14:49 rn Administered Medications: 17:10 Drug: SOLU-Medrol 125 mg Route: IVP; Site: right wrist; jl7 18:51 Follow up: Response: No adverse reaction jl7 17:10 Drug: Xopenex (3) 1.25 mg Route: Inhalation; jl7 18:51 Follow up: Response: No adverse reaction jl7 17:15 Drug: Pepcid 20 mg Route: IVP; Site: right wrist; jl7 18:51 Follow up: Response: No adverse reaction 7 Disposition: 08/09/20 17:22 Hospitalization ordered by Noe Fontenot for Inpatient Admission. Preliminary diagnosis are Chronic obstructive pulmonary disease, unspecified, Pulmonary edema, Dyspnea, unspecified, Unspecified combined systolic (congestive) and diastolic (congestive) heart failure. - Bed requested for Telemetry/MedSurg (Inpatient). - Status is Inpatient Admission. aj1 - Condition is Stable. - Problem is an acute exacerbation. - Symptoms have improved. Signatures: Dispatcher [employer] [facility] Erin Dyer RN RN aj1 Ame Ewing RN RN mw Woody, Diana, RN RN dw Nieto, Roman, MD MD rn Leal, Jahala, RN RN jl7 Melissa Valladares RN TWYLA ca1 Corrections: (The following items were deleted from the chart) 18:35 17:22 Hospitalization Ordered by Noe Fontenot MD for Inpatient Admission. Preliminary dw diagnosis is Chronic obstructive pulmonary disease, unspecified; Pulmonary edema; Dyspnea, unspecified; Unspecified combined systolic (congestive) and diastolic (congestive) heart failure. Bed requested for Telemetry/MedSurg (Inpatient). Status is Inpatient Admission. Condition is Stable. Problem is an acute exacerbation. Symptoms have improved. rn 20:02 18:35 08/09/2020 17:22 Hospitalization Ordered by Noe Fontenot MD for Inpatient dw Admission. Preliminary diagnosis is Chronic obstructive pulmonary disease, unspecified; Pulmonary edema; Dyspnea, unspecified; Unspecified combined systolic (congestive) and diastolic (congestive) heart failure. Bed requested for Telemetry/MedSurg (Inpatient). Status is Inpatient Admission. Condition is Stable. Problem is an acute exacerbation. Symptoms have improved. dw 20:41 20:02 08/09/2020 17:22 Hospitalization Ordered by Noe oFntenot MD for Inpatient mw Admission. Preliminary diagnosis is Chronic obstructive pulmonary disease, unspecified; Pulmonary edema; Dyspnea, unspecified; Unspecified combined systolic (congestive) and diastolic (congestive) heart failure. Bed requested for Telemetry/MedSurg (Inpatient). Status is Inpatient Admission. Condition is Stable. Problem is an acute exacerbation. Symptoms have improved. dw 22:01 20:41 08/09/2020 17:22 Hospitalization Ordered by Noe Fontenot MD for Inpatient aj1 Admission. Preliminary diagnosis is Chronic obstructive pulmonary disease, unspecified; Pulmonary edema; Dyspnea, unspecified; Unspecified combined systolic (congestive) and diastolic (congestive) heart failure. Bed requested for Telemetry/MedSurg (Inpatient). Status is Inpatient Admission. Condition is Stable. Problem is an acute exacerbation. Symptoms have improved. mw
[2020-08-09] MEDS ORDERED: LEVALBUTEROL 1.25 MG/3 ML NEB ONE (17:24)
[2020-08-09] MEDS ORDERED: FAMOTIDINE 20 MG/2 ML VIAL IV ONE (17:24)
[2020-08-09] MEDS ORDERED: METHYLPREDNISOLONE 125 MG INJ ONE (17:24)
[2020-08-09] MEDS ORDERED: ACETAMINOPHEN 500 MG TAB PO PRN (17:58)
[2020-08-09] MEDS ORDERED: ONDANSETRON 4 MG/2 ML VIAL IV PRN (17:58)
[2020-08-09] MEDS ORDERED: VANCOMYCIN/NS 1 gm 1 GM/250 ML BAG IV ONE (18:30)
[2020-08-09 18:49] LABS: Blood Morphology Comment NOT SEEN (NOT SEEN); Platelet Estimate ADEQ; White Blood Cell Scan OK (OK)
[2020-08-09] MEDS ORDERED: ALBUMIN HUMAN 25% 50 ML IV ONE (19:00)
[2020-08-09] MEDS ORDERED: ALBUTEROL 2.5 MG/3 ML NEB SOL ONE (19:55)
[2020-08-09] MEDS ORDERED: IPRATROPIUM BROM 0.5MG/2.5ML ONE (19:55)
[2020-08-09] MEDS: ALBUTEROL 2.5 MG/3 ML NEB SOL NEB SCH (20:15)
[2020-08-09] MEDS: IPRATROPIUM BROM 0.5MG/2.5ML NEB SCH (20:15)
[2020-08-09 22:33] VITALS: O2SAT 97
[2020-08-10 00:04] VITALS: BMI 26.1
[2020-08-10] MEDS: FUROSEMIDE 20 MG/ 2ML VIAL IV SCH ×3 (00:21→17:38)
[2020-08-10] MEDS: ENOXAPARIN 40 MG/0.4 ML SQ SCH ×2 (00:22→09:09)
[2020-08-10] MEDS: PIPER/TAZO/NS 2.25gm 2.25 GM/50 ML BAG IVPB SCH ×4 (00:22→17:54)
[2020-08-10] MEDS: ALBUTEROL 2.5 MG/3 ML NEB SOL NEB SCH ×3 (01:45→13:30)
[2020-08-10] MEDS: IPRATROPIUM BROM 0.5MG/2.5ML NEB SCH ×3 (01:45→13:30)
[2020-08-10 05:58] LABS: Absolute Lymphocytes (CBC) 0.2 K/uL (0.7-4.9); Basophils % 0.1 % (0-1.3); Hematocrit 26.1 % (39.6-49.0); Lymphocytes % 2.8 % (15.3-44.8); MPV 7.1 fL (7.6-11.3)
[2020-08-10 06:01] LABS: Protime INR 1.12
[2020-08-10 06:12] LABS: Albumin 2.9 g/dL (3.4-5.0); Bilirubin Total 0.5 mg/dL (0.2-1.0); Magnesium 2.3 mg/dL (1.8-2.4); Phosphorus 3.6 mg/dL (2.5-4.9); Protein, Total 7.1 g/dL (6.4-8.2)
--- NOTE | 2020-08-10 07:38 | P.HP ---
Certification for Inpatient Patient admitted to: Observation With expected LOS: <2 Midnights Patient will require the following post-hospital care: None Practitioner: I am a practitioner with admitting privileges, knowledge of patient current condition, hospital course, and medical plan of care. Services: Services provided to patient in accordance with Admission requirements found in Title 42 Section 412.3 of the Code of Federal Regulations Patient History Date of Service: 08/10/20 Reason for admission: Respiratory distress History of Present Illness: Patient is an 85yo who has a history of lung cancer and is on chemotherapy. Patient was sounded congested when the home health nurse came to visit him. He had a lot of abnormal lung sounds and they felt he was fluid overloaded. He was recently in the hospital for similar issues. He currently is feeling better after nebs in the emergency room. Patient's son is with him today states that the main reason he was brought in and was because the home health nurse saying he needed to be seen in the emergency room. The emergency room physician is worried that he does have some volume overload and pneumonia on his chest x-ray. He also had a scan amount of hemoptysis. On reviewing his old CT scan she does have infiltrates in the similar regions. I will admit him overnight and get Pulmonary consultation to get their opinion. Anticipate discharge home in 24 hours. If his symptoms worsen then we will change him to inpatient admission. Allergies No Known Allergies Allergy (Verified 08/10/20 00:03) Home Medications: Aspirin Chewable [Aspirin Chewable*] 81 mg PO DAILY 05/24/20 Cyanocobalamin (Vitamin B-12) [Vitamin B12] 2,500 mcg PO DAILY 05/24/20 Fenofibrate,Micronized [Fenofibrate] 1 tab PO DAILY 05/24/20 Lactobacillus Acidophilus [Probiotic] 1 each PO DAILY 05/24/20 Metoprolol Tartrate [Lopressor*] 25 mg PO BID 05/24/20 Multivit-Min/FA/Lycopen/Lutein [Centrum Silver Men Tablet] 1 each PO DAILY 05/24/20 Psyllium Husk [Metamucil] 0.52 gm PO BID 05/24/20 Rosuvastatin [Crestor*] 20 mg PO DAILY 05/24/20 Fluticasone/Umeclidin/Vilanter [Trelegy Ellipta 100-62.5-25] 1 each IH DAILY #1 blst.w.dev 08/01/20 Furosemide [Lasix] 20 mg PO DAILY #30 tab 08/01/20 Levalbuterol Tartrate [Xopenex Hfa] 2 puff IH TID PRN #1 hfa.aer.ad 08/01/20 predniSONE [Prednisone*] 20 mg PO SEECOM #15 tab 08/01/20 - Past Medical/Surgical History Has patient received pneumonia vaccine in the past: Yes Diabetic: No -: Hypertension -: Hyperlipidemia -: Pacemaker -: COPD -: Non-small cell lung cancer -: Pacemaker -: Cholecystectomy Psychosocial/ Personal History: 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 - Social History Smoking Status: Never smoker Alcohol use: No CD- Drugs: No Caffeine use: No Place of Residence: Home Review of Systems 10-point ROS is otherwise unremarkable Physical Examination - Vital Signs Temperature: 97.8 F Blood Pressure: 116/58 Pulse: 94 Respirations: 18 Pulse Ox (%): 98 - Physical Exam General: Alert, In no apparent distress, Oriented x3 HEENT: Atraumatic, PERRLA, Mucous membr. moist/pink, EOMI, Sclerae nonicteric Neck: Supple, 2+ carotid pulse no bruit, No LAD, Without JVD or thyroid abnormality Respiratory: Diminished, Crackles/rales, Expiratory wheezes Cardiovascular: Regular rate/rhythm, Normal S1 S2, No murmurs Gastrointestinal: Normal bowel sounds, Soft and benign, Non-distended, No tenderness Musculoskeletal: No clubbing, No swelling, No tenderness Integumentary: No rashes Neurological: Normal gait, Normal speech, Normal strength at 5/5 x4 extr, Normal tone, Normal affect Lymphatics: No axilla or inguinal lymphadenopathy - Studies Laboratory Data (last 24 hrs) 08/09/20 15:45: PT 13.1 H, INR 1.11, APTT 28.1 08/09/20 15:45: WBC 11.3 H D, Hgb 9.9 L, Hct 28.9 L, Plt Count 343 08/09/20 15:45: Sodium 132 L, Potassium 4.3, BUN 39 H, Creatinine 1.51 H, Glucose 130 H, Magnesium 2.3, Total Bilirubin 0.4, AST 23, ALT 31, Alkaline Phosphatase 54 Assessment & Plan - Problems (Diagnosis) (1) History of lung cancer Current Visit: Yes Status: Acute (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 Continue with IV antibiotics 2. Continue with gentle diuresis 3. Repeat chest x-ray in AM 4. Will order CT scan of the chest if symptoms worsen 5. Continue with nebs as needed 6. O2 per protocol 7. Repeat labs including CBC and renal function in a.m. 8. Pulmonary consultation 9. GI and DVT prophylaxis - Advance Directives Does patient have a Living Will: No Does patient have a Durable POA for Healthcare: Yes
[2020-08-10] MEDS ORDERED: ASPIRIN EC 81 MG TAB PO SCH (09:00)
[2020-08-10] MEDS ORDERED: CLOPIDOGREL 75 MG TABLET PO SCH (09:00)
--- NOTE | 2020-08-10 11:22 | EKG ---
Test Date: 2020-08-09 Test Time: 14:45:45 Tester Electronic Scale: JAY MEASUREMENT RESULTS: Intervals: Rate: 104 MN: 168 QRSD: 172 QT: 376 QTc: 494 [place]: P: 42 MN: 168 QRS: -78 T: 84 INTERPRETIVE STATEMENTS: Electronic ventricular pacemaker Compared to ECG 07/30/2020 14:24:04 No significant changes Electronically Signed On 08-10-20 11:20:23 CDT by Cory Edmond
--- NOTE | 2020-08-10 11:23 | P.CNS ---
Date of Consult: 08/10/20 Chief Complaint: Hemoptysis History of Present Illness: Patient is 85 years of age well known to me recently admitted nurse thought that he had chest congestion he has had hemoptysis for quite some time as an had any chemo radiation denies any fever or chills this patient has congestive heart failure otherwise feeling better compliant with his medications Allergies No Known Allergies Allergy (Verified 08/10/20 00:03) Home Medications: Aspirin Chewable [Aspirin Chewable*] 81 mg PO DAILY 05/24/20 Cyanocobalamin (Vitamin B-12) [Vitamin B12] 2,500 mcg PO DAILY 05/24/20 Fenofibrate,Micronized [Fenofibrate] 1 tab PO DAILY 05/24/20 Lactobacillus Acidophilus [Probiotic] 1 each PO DAILY 05/24/20 Metoprolol Tartrate [Lopressor*] 25 mg PO BID 05/24/20 Multivit-Min/FA/Lycopen/Lutein [Centrum Silver Men Tablet] 1 each PO DAILY 05/24/20 Psyllium Husk [Metamucil] 0.52 gm PO BID 05/24/20 Rosuvastatin [Crestor*] 20 mg PO DAILY 05/24/20 Fluticasone/Umeclidin/Vilanter [Trelegy Ellipta 100-62.5-25] 1 each IH DAILY #1 blst.w.dev 08/01/20 Furosemide [Lasix] 20 mg PO DAILY #30 tab 08/01/20 Levalbuterol Tartrate [Xopenex Hfa] 2 puff IH TID PRN #1 hfa.aer.ad 08/01/20 predniSONE [Prednisone*] 20 mg PO SEECOM #15 tab 08/01/20 - Past Medical/Surgical History Diabetic: No -: Hypertension -: Hyperlipidemia -: Pacemaker -: COPD -: Non-small cell lung cancer -: Pacemaker -: Cholecystectomy Psychosocial/ Personal History: 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 - Social History Smoking Status: Unknown if ever smoked Alcohol use: No CD- Drugs: No Caffeine use: No Place of Residence: Home Review of Systems 10-point ROS is otherwise unremarkable General: Weakness Respiratory: Shortness of Breath, Hemoptysis Physical Examination Temp Pulse Resp BP Pulse Ox 96.5 F L 88 20 120/59 L 98 08/10/20 08:00 08/10/20 09:09 08/10/20 08:00 08/10/20 09:09 08/10/20 08:00 General: Alert, In no apparent distress, Oriented x3 Respiratory: Clear to auscultation bilaterally Cardiovascular: No edema, Normal S1 S2 Laboratory Data (last 24 hrs) 08/09/20 15:45: PT 13.1 H, INR 1.11, APTT 28.1 08/09/20 15:45: WBC 11.3 H D, Hgb 9.9 L, Hct 28.9 L, Plt Count 343 08/09/20 15:45: Sodium 132 L, Potassium 4.3, BUN 39 H, Creatinine 1.51 H, Glucose 130 H, Magnesium 2.3, Total Bilirubin 0.4, AST 23, ALT 31, Alkaline Phosphatase 54 - Problems (1) Hemoptysis Current Visit: Yes Status: Acute Plan: Patient is 85 years of age admitted with chest congestion and some hemoptysis he has [id number] lung cancer involving the lower right lung he has chronic hemoptysis chemistries reviewed patient has chronic renal insufficiency interstitial changes on the chest x-ray I have ordered a sputum culture patient can be discharged home on levofloxacin restrict fluid intake increase Lasix to 40 mg low-dose prednisone 10 mg twice a day follow-up with me next week continue with bronchodilators
[2020-08-10] MEDS ORDERED: FUROSEMIDE 20 MG/ 2ML VIAL IV ONE (12:51)
--- NOTE | 2020-08-10 15:22 | P.DS ---
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 Patient was sounded congested when the home health nurse came to visit him. He had a lot of abnormal lung sounds and they felt he was fluid overloaded. He was recently in the hospital for similar issues. He currently is feeling better after nebs in the emergency room. Patient's son is with him today states that the main reason he was brought in and was because the home health nurse saying he needed to be seen in the emergency room. The emergency room physician is worried that he does have some volume overload and pneumonia on his chest x-ray. He also had a scan amount of hemoptysis. On reviewing his old CT scan she does have infiltrates in the similar regions. I will admit him overnight and get Pulmonary consultation to get their opinion. Anticipate discharge home in 24 hours. If his symptoms worsen then we will change him to inpatient admission. Hospital Course: Patient was seen by Pulmonary. Dr. Moses sees the patient on an outpatient basis. He feels patient is stable for discharge. Patient clinically is stable. We will go ahead and diurese him a little bit more prior to discharging. Patient will be able to discharge after supper Vital Signs/Physical Exam: Temp Pulse Resp BP Pulse Ox 97.8 F 94 H 18 116/58 L 98 08/10/20 15:14 08/10/20 15:14 08/10/20 15:14 08/10/20 15:14 08/10/20 15:14 General: Alert, In no apparent distress, Oriented x3 Laboratory Data at Discharge: WBC 8.6 K/uL (4.3-10.9) D 08/10/20 05:18 Hgb 9.0 g/dL (13.6-17.9) L 08/10/20 05:18 Hct 26.1 % (39.6-49.0) L 08/10/20 05:18 Plt Count 325 K/uL (152-406) 08/10/20 05:18 PT 13.2 SECONDS (9.5-12.5) H 08/10/20 05:18 INR 1.12 08/10/20 05:18 APTT 29.4 SECONDS (24.3-36.9) 08/10/20 05:18 Sodium 133 mmol/L (136-145) L 08/10/20 05:18 Potassium 4.0 mmol/L (3.5-5.1) 08/10/20 05:18 BUN 39 mg/dL (7-18) H 08/10/20 05:18 Creatinine 1.65 mg/dL (0.55-1.3) H 08/10/20 05:18 Glucose 144 mg/dL (74-106) H 08/10/20 05:18 Phosphorus 3.6 mg/dL (2.5-4.9) 08/10/20 05:18 Magnesium 2.3 mg/dL (1.8-2.4) 08/10/20 05:18 Total Bilirubin 0.5 mg/dL (0.2-1.0) 08/10/20 05:18 AST 17 U/L (15-37) 08/10/20 05:18 ALT 27 U/L (12-78) 08/10/20 05:18 Alkaline Phosphatase 59 U/L (45-117) 08/10/20 05:18 Home Medications: Aspirin Chewable [Aspirin Chewable*] 81 mg PO DAILY 05/24/20 Cyanocobalamin (Vitamin B-12) [Vitamin B12] 2,500 mcg PO DAILY 05/24/20 Fenofibrate,Micronized [Fenofibrate] 1 tab PO DAILY 05/24/20 Lactobacillus Acidophilus [Probiotic] 1 each PO DAILY 05/24/20 Metoprolol Tartrate [Lopressor*] 25 mg PO BID 05/24/20 Multivit-Min/FA/Lycopen/Lutein [Centrum Silver Men Tablet] 1 each PO DAILY 05/24/20 Psyllium Husk [Metamucil] 0.52 gm PO BID 05/24/20 Rosuvastatin [Crestor*] 20 mg PO DAILY 05/24/20 Fluticasone/Umeclidin/Vilanter [Trelegy Ellipta 100-62.5-25] 1 each IH DAILY #1 blst.w.dev 08/01/20 Levalbuterol Tartrate [Xopenex Hfa] 2 puff IH TID PRN #1 hfa.aer.ad 08/01/20 Furosemide [Lasix] 40 mg PO DAILY #30 tablet 08/10/20 Levofloxacin [Levaquin] 500 mg PO DAILY #7 tablet 08/10/20 predniSONE [Prednisone*] 20 mg PO BID #15 tab 08/10/20 New Medications: Furosemide [Lasix] 40 mg PO DAILY #30 tablet Levofloxacin [Levaquin] 500 mg PO DAILY #7 tablet predniSONE [Prednisone*] 20 mg PO BID #15 tab Patient Discharge Instructions: OK TO DC IV AND DC HOME AFTER DINNER. FOLLOW-UP WITH PRIMARY CARE PROVIDER IN 1-2 WEEKS. FOLLOW-UP WITH PULMONARY IN 1-2 WEEKS. RETURN TO THE ER IF SYMPTOMS WORSEN. CALL or TEXT DR. CRUZ AT [phone] IF ANY QUESTIONS REGARDING HOSPITAL STAY. PLEASE CALL THE FLOOR AT [phone] IF ANY MEDICATION OR NURSING QUESTIONS. Diet: Regular Activity: Fall precautions Followup: Benjamin Reed MD [Primary Care Provider] - (Call to make an appointment. ) Time spent managing pt's care (in minutes): 35
[2020-08-10 17:32] VITALS: BP 101/60; TEMP 97.1
[2020-08-10] MEDS ORDERED: METHYLPREDNISOLONE 125 MG INJ IV SCH (21:00)
== END 2020-08-10 18:33 | disposition home health service (06) ==
LOC: ER 13:37 → ERHOLD 17:59 → 2ND 21:47
PROVIDERS: ADMIT Hospitalist; ATTEND Hospitalist
DX: I13.0 Hypertensive heart and chronic kidney disease with heart failure and stage 1 through stage 4 chronic kidney disease, or unspecified chronic kidney disease (principal); I50.40 Unspecified combined systolic (congestive) and diastolic (congestive) heart failure; N18.9 Chronic kidney disease, unspecified; C34.31 Malignant neoplasm of lower lobe, right bronchus or lung; R04.2 Hemoptysis; R91.8 Other nonspecific abnormal finding of lung field; J44.9 Chronic obstructive pulmonary disease, unspecified; E78.5 Hyperlipidemia, unspecified; I48.91 Unspecified atrial fibrillation; Z20.828 Contact with and (suspected) exposure to other viral communicable diseases; Z79.82 Long term (current) use of aspirin; Z87.891 Personal history of nicotine dependence; Z95.0 Presence of cardiac pacemaker; Z90.49 Acquired absence of other specified parts of digestive tract
CPT/HCPCS: 93005; 87040 ×2; 87070; 85025 ×2; 80048; 36415; 83735 ×2; 87205; 84100; 85610 ×2; 80076; 85730 ×2; 84484; 80053; 84145; 83880; 71045; 96375; 96374; 99285; U0002; J1940 ×4; J1650 ×2; J3370; P9047; J2930; G0378 ×2